=== PATIENT | male | born 1995 | race Two or more races ===

== ENCOUNTER 2016-12-16 13:42 | Emergency (ER) | payer OTHER ==
[~2016-12-16] VITALS: Ht 157.5 cm; Wt 75.7 kg
--- NOTE | 2016-12-16 13:42 | NUR ---
FROM [facility] DIFFUSE ABDOMINAL PAIN SINCE YESTERDAY, +NAUSEA/VOMITING, DENIES DIARRHEA. AWAITING MD ORDER
[2016-12-16] MEDS ORDERED: ONDANSETRON 4 MG TAB.RAPDIS SL ONE (14:30)
[2016-12-16 14:44] LABS: BASOPHILS # (AUTO) 0.1 /CMM (0.0-0.2); BASOPHILS % (AUTO) 0.9 % (0.0-2.0); EOSINOPHILS # (AUTO) 0.1 /CMM (0.0-0.7); EOSINOPHILS % (AUTO) 0.9 % (0.0-6.0); HEMATOCRIT 49 % (39-51); LYMPHOCYTES # (AUTO) 1.5 /CMM (0.8-4.8); LYMPHOCYTES % (AUTO) 20.3 % (20.0-44.0); MEAN CORPUSCULAR HEMOGLOBIN 29 PG (26.0-33.0); MEAN CORPUSCULAR HGB CONC 33 g/dl (31.0-36.0); MEAN CORPUSCULAR VOLUME 90 fL (80-96); MONOCYTES # (AUTO) 0.8 /CMM (0.1-1.30); MONOCYTES % (AUTO) 11.1 % (2.0-12.0); NEUTROPHILS # (AUTO) 4.7 /CMM (1.8-8.9); NEUTROPHILS % (AUTO) 66.8 % (43.0-81.0); PLATELET COUNT (AUTO) 263 /CMM (150-450); RDW COEFFICIENT OF VARIATION 13.7 (11.5-15.0); RED BLOOD CELL COUNT(AUTO) 5.46 MIL/uL (4.5-6.0); WHITE BLOOD COUNT (AUTO) 7.2 K/uL (4.3-11.0)
[2016-12-16 14:55] LABS: CALCIUM, SERUM 9.5 mg/dL (8.5-10.1); CREATININE 1.2 mg/dL (0.6-1.3); POTASSIUM 3.9 mmol/L (3.5-5.1)
[2016-12-16 15:01] LABS: BILIRUBIN,DIRECT 0.1 mg/dL (0.0-0.2); BILIRUBIN,TOTAL 0.4 mg/dL (0.2-1.0); TOTAL PROTEIN, SERUM 8.1 g/dL (6.4-8.2)
[2016-12-16] MEDS ORDERED: ONDANSETRON 4 MG TAB.RAPDIS ONE (15:13)
--- NOTE | 2016-12-16 16:13 | NUR ---
CALLED [facility] FOR TRANSPORT BACK TO [facility], ETA [phone]
--- NOTE | 2016-12-16 16:29 | NUR ---
Patient discharged to home in stable condition. Written and verbal after care instructions given. Patient verbalizes understanding of instruction.
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
--- NOTE | 2016-12-16 18:50 | NUR ---
CALLED BACK [facility] TO TRANSPORT BACK TO [facility] 10-15 MIN
--- NOTE | 2016-12-16 19:08 | NUR ---
RECEIVED REPORT FROM DAIN SAENZ FOR RICHARD.
--- NOTE | 2016-12-16 19:14 | NUR ---
PT REFUSED TO BE TRANSFERED BACK TO [facility]IA AMBULANCE. DR. BOONE MADE AWARE. AT BEDSIDE SPEAKING TO PT.
--- NOTE | 2016-12-16 19:36 | NUR ---
PT AGREED TO BE TRANSFERED BACK TO [facility] VIA EMS. PAC GRANDA AT BEDSIDE. REPORT GIVEN TO [facility]. PROVIDED WITH ALL D/C DOCUMENTATION. PT AWARE OF TRANSFER WITH ALL PERSONAL BELONGINGS. VSS. PT TRANSFERED VIA GURNEY. PER EMS TOOK OVER CARE.
[2016-12-16 19:39] VITALS: BP 146/68
[2016-12-16 19:48] LABS: ACETAMINOPHEN < 10 ug/ml (10-30); ALCOHOL, BLOOD < 3 mg/dL (0-0); SALICYLATE 1.7 mg/dL (2.8-20.0)
== END 2016-12-16 19:39 | disposition home or self-care (01) ==
LOC: ER 13:44
DX: R10.84 Generalized abdominal pain (principal); E11.9 Type 2 diabetes mellitus without complications; R11.2 Nausea with vomiting, unspecified; F20.9 Schizophrenia, unspecified; I10 Essential (primary) hypertension
CPT/HCPCS: 36415; 80048-TC; 80076-TC; 83690-TC; 85025-TC; A4606; G0480; Q0162; Z7610

== ENCOUNTER 2021-04-22 13:08 | Emergency (ER) | payer OTHER ==
[~2021-04-22] VITALS: Ht 157.5 cm; Wt 76.2 kg
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
--- NOTE | 2021-04-22 13:26 | NUR ---
[facility] REGARDING TREATMENT REQUEST, STATES WILL CONFIRM WITH [facility] AND CALL BACK
[2021-04-22] MEDS ORDERED: LEVETIRACETAM (500MG) 1,000 MG in IV NS 0.9% 100 ML IV SCH (13:30)
[2021-04-22] MEDS ORDERED: IV NS 0.9% 1,000 ML IV ONE (13:30)
--- NOTE | 2021-04-22 13:32 | NUR ---
MEDICATED PER ERMD ORDER, PT ANAI WELL. WILL CONT TO MONITOR.
[2021-04-22] MEDS ORDERED: LEVE500T9 PO (15:03)
--- NOTE | 2021-04-22 15:06 | NUR ---
[facility] CALLED [facility] 45 MINS.
--- NOTE | 2021-04-22 16:07 | NUR ---
Patient discharged to home in stable condition. Written and verbal after care instructions given. Patient verbalizes understanding of instruction. IV removed. Catheter intact and site benign. Pressure and 4x4 applied to site. No bleeding noted.
[2021-04-22 16:09] VITALS: BP 121/74
[2021-04-23] MEDS ORDERED: PANTOPRAZOLE 40 MG TABLET.DR PO ONE (07:50)
--- NOTE | 2021-05-06 10:16 | NUR ---
Opal cooper in EDM - 05/06/21 at 1029 by FRANCISCO ADENDUM. CARLSON GIVEN AT 1330 IV AND ENDED 1829.
--- NOTE | 2021-05-06 10:29 | NUR ---
MYRA. KEPPRA 500MG/5ML VIAL 1,00MG IN IV 0.9% NS 100ML GIVEN AT 220ML GIVEN IV. STARTED AT 1330 AND ENDED AT 1400.
== END 2021-04-22 16:08 ==
LOC: ER 13:33
DX: G40.909 Epilepsy, unspecified, not intractable, without status epilepticus (principal); Z91.14 Patient's other noncompliance with medication regimen; I10 Essential (primary) hypertension; J45.909 Unspecified asthma, uncomplicated; E11.9 Type 2 diabetes mellitus without complications
CPT/HCPCS: 96365; 99285; J1953; J7030 ×2

== ENCOUNTER 2021-04-22 19:25 | Inpatient (IN) | payer OTHER ==
[~2021-04-22] VITALS: Ht 157.5 cm; Wt 66.2 kg
[~2021-04-22 19:25] MED LIST: LEVE500T9 PO
--- NOTE | 2021-04-22 19:55 | NUR ---
PATIENT [id number] C/O WITNESSED 1 MIN SEIZURE, -HEADTRUAMA. PATIENT WAS JUST DISCHARGED FROM [facility] ER EARLIER TODAY. PATIENT IS A/O X 4, RR EVEN AND UNLABORED, NO SOB NOTED. PATIENT CONNECTED TO CARIDAC MONITOR AND POX. SEIZURE PRECAUTIONS IN PLACE.
--- NOTE | 2021-04-22 20:56 | NUR ---
PHELBOTOMIST AT BEDSIDE
[2021-04-22 21:12] LABS: BASOPHILS # (AUTO) 0.1 K/uL (0.0-0.2); BASOPHILS % (AUTO) 0.6 % (0.0-2.0); EOSINOPHILS % (AUTO) 0.2 % (0.0-6.0); HEMATOCRIT 45 % (39-51); HEMOGLOBIN 15.1 g/dL (13.5-17.5); LYMPHOCYTES # (AUTO) 2.1 K/uL (0.8-4.8); LYMPHOCYTES % (AUTO) 23.9 % (20.0-44.0); MEAN CORPUSCULAR HGB CONC 33 g/dl (31.0-36.0); MEAN CORPUSCULAR VOLUME 94 fL (80-96); MONOCYTES # (AUTO) 1.2 K/uL (0.1-1.30); MONOCYTES % (AUTO) 13.4 % (2.0-12.0); NEUTROPHILS # (AUTO) 5.3 K/uL (1.8-8.9); NEUTROPHILS % (AUTO) 61.9 % (43.0-81.0); PLATELET COUNT (AUTO) 219 K/uL (150-450); RED BLOOD CELL COUNT(AUTO) 4.78 MIL/uL (4.5-6.0); WHITE BLOOD COUNT (AUTO) 8.6 K/uL (4.3-11.0)
[2021-04-22 21:32] LABS: ALCOHOL, BLOOD < 3 mg/dL (0-0); CALCIUM, SERUM 9.1 mg/dL (8.5-10.1); CARBON DIOXIDE 27 mmol/L (21-32); CHLORIDE 106 mmol/L (98-107); CREATININE 1.1 mg/dL (0.6-1.3); GLUCOSE 95 mg/dL (74-106); POTASSIUM 3.9 mmol/L (3.5-5.1); SODIUM SERUM 142 mmol/L (136-145); UREA NITROGEN, BLOOD 12 mg/dL (7-18)
--- NOTE | 2021-04-22 23:37 | NUR ---
EPIC PANEL PAGED
--- NOTE | 2021-04-23 | NUR ---
URINE COLLECTED AND SENT TO LAB
[2021-04-23] MEDS ORDERED: Z GUARD REMEDY 2 OZ OINT TP PRN (00:30)
[2021-04-23] MEDS ORDERED: ONDANSETRON HCL/PF 4 MG/2 ML VIAL IVP PRN (00:30)
[2021-04-23] MEDS ORDERED: MAGNESIUM HYDROXIDE 30 ML UDC PO PRN (00:30)
--- NOTE | 2021-04-23 00:53 | NUR ---
DENISSE COLLECTED AND SENT TO LAB
[2021-04-23] MEDS ORDERED: LEVETIRACETAM (500MG) 1,000 MG in IV NS 0.9% 100 ML IV SCH (05:00)
[2021-04-23] MEDS ORDERED: LEVETIRACETAM (500MG) 500 MG/5 ML VIAL IV ONE (05:43)
[2021-04-23] MEDS: PANTOPRAZOLE 40 MG TABLET.DR PO SCH (07:45)
[2021-04-23] MEDS: IV NS 0.9% 1,000 ML IV PRN ×2 (08:02→21:12)
--- NOTE | 2021-04-23 08:12 | NUR ---
PT GAVE MOTHERS PHONE NUMBER, TARAN . HUNGARIAN SPEAKING ONLY.
--- NOTE | 2021-04-23 17:42 | NUR ---
bed assigned 325-2 for next shift
--- NOTE | 2021-04-23 19:51 | NUR ---
GAVE REPORT TO DAIN BECKWITH FOR RICHARD
--- NOTE | 2021-04-23 20:29 | NUR ---
pt transported with ACLS protocol.
--- NOTE | 2021-04-23 20:30 | NUR ---
MS COOK RN ADMITTING NOTE PT TRANSPORTED BY [facility] TO UNIT FROM ED AT THIS TIME. RECEIVED REPORT FROM DAIN MOSER @ED, A/OX 4. PT ABLE TO COMMUNICATE NEEDS. NO SOB NOTED, NO C/O PETERS AT THIS TIME, NO S/S OF ANY APPARENT DISTRESS NOTED. RESPIRATIONS EVEN AND UNLABORED, ACTIVE BOWEL SOUNDS AUSCULTATED THROUGHOUT, ABDOMEN IS TENDER AND NON DISTENDED, SKIN IS INTACT, WARM TO TOUCH. CAPILLARY REFILL < 3 SECONDS, PULSES PRESENT BILATERALLY, GOOD CIRCULATION NOTED. IV ACCESS IN LEFT HAND # 20, INTACT, PATENT AND FLUSHING WELL. PT'S BELONGINGS ACCOUNTED FOR, AND KEPT AT PT'S BEDSIDE PER PT REQUEST. ASPIRATION AND SAFETY PRECAUTIONS IN PLACE AND MAINTAINED AT ALL TIMES. BED IN LOWEST, LOCKED POSITION, SIDE RAILS UP X2, TABLE AND CALL LIGHT WITHIN REACH. WILL CONTINUE TO MONITOR.
[2021-04-23] MEDS: LEVETIRACETAM (500MG) 1,000 MG in IV NS 0.9% 100 ML IV SCH (21:12)
[2021-04-23] MEDS: ACETAMINOPHEN 325 MG TABLET PO PRN (22:45)
[2021-04-24 00:01] VITALS: BP 133/85
[2021-04-24] MEDS: HYDROCODONE/APAP 5/325MG TABLET PO PRN ×3 (00:34→15:27)
--- NOTE | 2021-04-24 04:20 | NUR ---
MD ATKINS AND CHARGE NURSE ANALI AWARE, FACE SHEET FAXED TO [facility] CHARGE NURSE, HUYEN. PSCY CONSULT ORDERED AND 1:[address] FRANK. WILL CONTINUE TO MONITOR
--- NOTE | 2021-04-24 04:20 | NUR ---
telecom sales consultant notes Pt is sitting next to nursing station. Pt is SI. Asked Pt about SI. Pt stated " I want to kill my self by putting my hands is on my throat. Pt also stated " I see vampires!" that's why i can't sleep!" informed and notified Director regarding Pt SI. Primary nurse is aware and informed. MD is aware and notified. Will continue to monitor.
[2021-04-24] MEDS: ACETAMINOPHEN 325 MG TABLET PO PRN (04:54)
--- NOTE | 2021-04-24 05:13 | NUR ---
PT STATED THAT HE FEELS LIKE KILLING HIMSELF AND THAT HE WANTS TO SIT WITH SOMEONE. CHARGE NURSE, ANALI MADE AWARE. PT IS SITTING NEXT TO THE NURSES STATION. WILL KEEP MONITORING PATIENT
--- NOTE | 2021-04-24 05:15 | NUR ---
PT BP 129/84. HR 94, O2 SAT 100,
--- NOTE | 2021-04-24 05:28 | NUR ---
CALLED TO NOTIFY DR ATKINS OF THE RECENT HAPPENINGS WITH THE PATIENT. PT IS ANXIOUS AND STATED THAT HE IS HEARING VOICES TELLING HIM TO CHOKE HIMSELF. WAITING TO HEAR FROM HIM.
--- NOTE | 2021-04-24 05:52 | NUR ---
director field services notes Received order from Dr. Heaton for ativan 2 mg IV/STAT. Order carried out.
--- NOTE | 2021-04-24 06:00 | NUR ---
RN NOTE AFTER HOURS PHARMACY CALLED THE 2ND TIME TO VERIFY ATIVAN FREEDOM. STILL NOT VERIFIED.
--- NOTE | 2021-04-24 06:09 | NUR ---
RN NOTE CHARGE NURSE ANALI CALLED PHARMACY AGAIN, PHARMACY [facility] STATES THAT WE STILL HAVE TO WAIT A FEW MORE MINUTES D/T HAVING ONLY ONE PHARMACIST. VERBALIZED THAT WE NEED MED FREEDOM PATIENT IS ACTIVELY HAVING MULTIPLE SEIZURES.
[2021-04-24] MEDS ORDERED: LORAZEPAM INJ 2 MG/ML VIAL IV ONE (06:11)
--- NOTE | 2021-04-24 06:19 | NUR ---
differential repairer notes Pt is having several seizures. Administered ativan 2 mg IV/once/STAT. Seizure precautions is maintained. Primary nurse at the bedside. Will continue to monitor.
[2021-04-24 06:33] LABS: ALBUMIN 3.7 g/dL (3.4-5.0); BILIRUBIN,TOTAL 0.5 mg/dL (0.2-1.0); CALCIUM, SERUM 8.4 mg/dL (8.5-10.1); CREATININE 1.5 mg/dL (0.6-1.3); PHOSPHORUS 2.8 mg/dL (2.5-4.9); POTASSIUM 3.5 mmol/L (3.5-5.1); TOTAL PROTEIN, SERUM 7.7 g/dL (6.4-8.2)
[2021-04-24 06:35] LABS: BASOPHILS # (AUTO) 0.1 K/uL (0.0-0.2); BASOPHILS % (AUTO) 0.5 % (0.0-2.0); EOSINOPHILS % (AUTO) 1.2 % (0.0-6.0); HEMATOCRIT 48 % (39-51); LYMPHOCYTES # (AUTO) 4.1 K/uL (0.8-4.8); LYMPHOCYTES % (AUTO) 41.3 % (20.0-44.0); MEAN CORPUSCULAR HGB CONC 33 g/dl (31.0-36.0); MEAN CORPUSCULAR VOLUME 97 fL (80-96); MONOCYTES # (AUTO) 1.1 K/uL (0.1-1.30); MONOCYTES % (AUTO) 11.6 % (2.0-12.0); NEUTROPHILS # (AUTO) 4.4 K/uL (1.8-8.9); NEUTROPHILS % (AUTO) 45.4 % (43.0-81.0); PLATELET COUNT (AUTO) 242 K/uL (150-450); RED BLOOD CELL COUNT(AUTO) 5.01 MIL/uL (4.5-6.0); WHITE BLOOD COUNT (AUTO) 9.8 K/uL (4.3-11.0)
--- NOTE | 2021-04-24 07:05 | NUR ---
PT HAD MULTIPLE SEIZURES. HE IS STABLE AT THE MOMENT. WILL ENDORSE TO ONCOMING NURSE FOR RICHARD. Addendum: 04/24/21 at 0738 by HÉCTOR NAVAS RN JOYCE GAUTAM CLOSING NOTE PT HAD MULTIPLE SEIZURES. HE IS STABLE AT THE MOMENT. WILL ENDORSE TO ONCOMING NURSE FOR RICHARD.
[2021-04-24 10:00] VITALS: BP 118/69
[2021-04-24] MEDS: PANTOPRAZOLE 40 MG TABLET.DR PO SCH (11:22)
[2021-04-24] MEDS: LEVETIRACETAM (500MG) 1,000 MG in IV NS 0.9% 100 ML IV SCH ×2 (11:25→23:26)
[2021-04-24] MEDS: IV NS 0.9% 1,000 ML IV PRN (11:25)
[2021-04-24 14:00] VITALS: BP 100/78
--- NOTE | 2021-04-24 14:30 | NUR ---
RN NOTE PATIENT HAD SEIZURE WHILE WALKING IN HALLWAY OF UNIT. FELL SLOWLY TO FLOOR. VITALS WNL. PATIENT COMPLAINING OF ARM PAIN XRAY ORDERED
[2021-04-24] MEDS: LORAZEPAM INJ 2 MG/ML VIAL IV PRN ×2 (15:26→19:42)
[2021-04-24] MEDS: MAG HYDROX/AL HYDROX/SIMETH 30 ML UDC PO PRN (15:26)
[2021-04-24 17:00] VITALS: BP 148/86
--- NOTE | 2021-04-24 19:00 | NUR ---
MS BENEFITS SPECIALIST ADMITTING RECEIVED PT IN THE NURSES STATION, A/OX 4. PT ABLE TO COMMUNICATE NEEDS. PT ON EXTERNAL ORTHOTICS TECHNICIAN SR @ 62. NO SOB NOTED, NO C/O PETERS AT THIS TIME, NO S/S OF ANY APPARENT DISTRESS NOTED. RESPIRATIONS EVEN AND UNLABORED, IV ACCESS IN LEFT HAND # 20, INTACT, PATENT AND FLUSHING WELL. ASPIRATION AND SAFETY PRECAUTIONS IN PLACE AND MAINTAINED AT ALL TIMES. BED IN LOWEST, LOCKED POSITION, SIDE RAILS UP X2, TABLE AND CALL LIGHT WITHIN REACH. WILL CONTINUE TO MONITOR. Addendum: 04/24/21 at 2231 by HÉCTOR NAVAS RN BENEFITS SPECIALIST OPENING NOTE RECEIVED PT IN THE NURSES STATION, A/OX 4. PT ABLE TO COMMUNICATE NEEDS. PT ON EXTERNAL ORTHOTICS TECHNICIAN SR @ 62. NO SOB NOTED, NO C/O PETERS AT THIS TIME, NO S/S OF ANY APPARENT DISTRESS NOTED. RESPIRATIONS EVEN AND UNLABORED, IV ACCESS IN LEFT HAND # 20, INTACT, PATENT AND FLUSHING WELL. ASPIRATION AND SAFETY PRECAUTIONS IN PLACE AND MAINTAINED AT ALL TIMES. BED IN LOWEST, LOCKED POSITION, SIDE RAILS UP X2, TABLE AND CALL LIGHT WITHIN REACH. WILL CONTINUE TO MONITOR.
--- NOTE | 2021-04-24 19:30 | NUR ---
PT STARTED HAVING SEIZURE, IT LASTED FOR 1 MIN. ATIVAN 1MG/0.5ML IV Q6HR PRN ADMINISTERED AT THIS TIME PER ORDER. WILL CONTINUE TO MONITOR.
--- NOTE | 2021-04-24 19:34 | NUR ---
PT HAD ANOTHER SEIZURE, LASTED FOR [address] ATKINS MADE AWARE. WILL CONTINUE TO MONITOR.
--- NOTE | 2021-04-24 19:55 | NUR ---
RN NOTE WHILE GIVING REPORT TO WATER SUPPLY TECHNICIAN NURSE PATIENT HAD TWO MORE SEIZURES. CONTACTED FEDERICO. SHE IS NOT SECTION CHIEF. WILL CONTACT SECTION CHIEF DOCTOR.
--- NOTE | 2021-04-24 21:30 | NUR ---
PT REFUSED MEDS AT THIS TIME. NO IV ACCESS, AGITATED AND REFUSED IV ACCESS, OFFERED MULTIPLE TIMES AND HE STILL REFUSED. WILL TRY AGAIN LATER. EXPLAINED THE RISKS AND BENEFITS. PT STILL REFUSED.WILL CONTINUE TO MONITOR.
[2021-04-24] MEDS: OLANZAPINE 10 MG TABLET PO SCH (23:26)
--- NOTE | 2021-04-25 06:33 | NUR ---
325: MELTER ASSISTANT CLOSING NOTE PT IS SLEEPING, EASILY AROUSED IN BED AT THIS TIME. A/OX 3-4. PT IS AMBULATORY, STABLE ON ROOM AIR. NO SOB NOTED OR RESPIRATORY DISTRESS. NO SEIZURES OR ANXIETY NOTED, PT REMAINED STABLE THROUGHOUT SHIFT WITH SITTER AT THE BEDSIDE. PT IS ON EXTERNAL COMPENSATION AND BENEFITS ANALYST READING SB 52. PT DENIES PAIN OR DISCOMFORT AT THIS TIME. IV ACCESS IS INTACT, PATENT AND FLUSHING WELL, NS INFUSING @ 75 ML/HR. ALL NEEDS MET, ALL MEDICATIONS ADMINISTERED PER ORDER, SAFETY, SEIZURE, AND ASPIRATION PRECAUTIONS MAINTAINED AT ALL TIMES. BED IN LOWEST, LOCKED POSITION WITH BED ALARM ON, SIDE RAILS PADDED AND UP X2. HOB ELEVATED. CALL LIGHT AND TABLE WITHIN REACH. WILL ENDORSE TO ONCOMING NURSE FOR RICHARD. Addendum: 04/25/21 at 0635 by HÉCTOR NAVAS RN MELTER ASSISTANT CLOSING NOTE PT IS SLEEPING, EASILY AROUSED IN BED AT THIS TIME. A/OX 3-4. PT IS AMBULATORY, STABLE ON ROOM AIR. NO SOB NOTED OR RESPIRATORY DISTRESS. NO SEIZURES OR ANXIETY NOTED, PT REMAINED STABLE THROUGHOUT SHIFT WITH SITTER AT THE BEDSIDE. PT IS ON EXTERNAL COMPENSATION AND BENEFITS ANALYST READING SB 52. PT DENIES PAIN OR DISCOMFORT AT THIS TIME. IV ACCESS IS INTACT, PATENT AND FLUSHING WELL, NS INFUSING @ 75 ML/HR. ALL NEEDS MET, ALL MEDICATIONS ADMINISTERED PER ORDER, SAFETY, SEIZURE, AND ASPIRATION PRECAUTIONS MAINTAINED AT ALL TIMES. BED IN LOWEST, LOCKED POSITION WITH BED ALARM ON, SIDE RAILS PADDED AND UP X2. HOB ELEVATED. CALL LIGHT AND TABLE WITHIN REACH. WILL ENDORSE TO ONCOMING NURSE FOR RICHARD.
[2021-04-25 06:55] LABS: BASOPHILS % (AUTO) 0.6 % (0.0-2.0); EOSINOPHILS % (AUTO) 1.4 % (0.0-6.0); HEMATOCRIT 46 % (39-51); HEMOGLOBIN 15.7 g/dL (13.5-17.5); LYMPHOCYTES # (AUTO) 2.8 K/uL (0.8-4.8); LYMPHOCYTES % (AUTO) 36.3 % (20.0-44.0); MEAN CORPUSCULAR HGB CONC 34 g/dl (31.0-36.0); MEAN CORPUSCULAR VOLUME 95 fL (80-96); MONOCYTES % (AUTO) 12.5 % (2.0-12.0); NEUTROPHILS # (AUTO) 3.8 K/uL (1.8-8.9); NEUTROPHILS % (AUTO) 49.2 % (43.0-81.0); PLATELET COUNT (AUTO) 211 K/uL (150-450); RED BLOOD CELL COUNT(AUTO) 4.84 MIL/uL (4.5-6.0); WHITE BLOOD COUNT (AUTO) 7.8 K/uL (4.3-11.0)
--- NOTE | 2021-04-25 07:22 | NUR ---
BAGGAGE INSPECTOR OPENING NOTES RECEIVED PT AWAKE IN BED IN NO ACUTE SIGNS OF DISTRESS. SITTER AT BED SIDE. A/O X3-4. ABLE TO MAKE NEEDS KNOWN, DENIES PAIN OR ANY DISCOMFORTS AT THIS TIME. ON ROOM AIR, RESPIRATIONS EVEN AND UNLABORED. ON EXTERNAL NOVELTY TWISTER OPERATOR WITH CURRENT READING OF SB, HR 56, NO C/O CARDIAC DISTRESS VOICED AT THIS TIME. IV ACCESS ON LEFT HAND G# 20 INTACT WITH IVF OF NS @ 75ML/HR INFUSING WELL, NO S/SX OF INFILTRATION AT SITE NOTED. SEIZURES AND SAFETY MEASURES IN PLACE: BED IN LOW AND LOCKED POSITION, CALL LIGHT AND BEDSIDE TABLE WITHIN REACH. SIDE RAILS UP X2 AND PADDED. WILL CONTINUE TO MONITOR PT ACCORDINGLY.
[2021-04-25 07:42] LABS: ALBUMIN 3.5 g/dL (3.4-5.0); BILIRUBIN,TOTAL 0.5 mg/dL (0.2-1.0); CALCIUM, SERUM 9.1 mg/dL (8.5-10.1); CREATININE 1.2 mg/dL (0.6-1.3); MAGNESIUM 2.3 mg/dL (1.8-2.4); PHOSPHORUS 3.6 mg/dL (2.5-4.9); POTASSIUM 3.6 mmol/L (3.5-5.1); TOTAL PROTEIN, SERUM 7.1 g/dL (6.4-8.2)
[2021-04-25 08:00] VITALS: BP 126/75
[2021-04-25] MEDS: PANTOPRAZOLE 40 MG TABLET.DR PO SCH (08:14)
[2021-04-25] MEDS: LEVETIRACETAM (500MG) 1,000 MG in IV NS 0.9% 100 ML IV SCH (09:02)
[2021-04-25 12:00] VITALS: BP 126/68
--- NOTE | 2021-04-25 13:03 | NUR ---
RN NOTES PT AT TIMES VERBALIZED THAT HE WANTS TO COMMITS SUICIDE OR HURT HIMSELF. MAINTAINS PT WITH 1:1 SITTER FOR CLOSE MONITORING. AIDE CABALLERO ON UNIT AND AWARE. WILL CONTINUE TO CLOSELY MONITOR PT BEHAVIOR AND FOR SAFETY.
[2021-04-25] MEDS: HYDROCODONE/APAP 5/325MG TABLET PO PRN (14:15)
--- NOTE | 2021-04-25 14:18 | NUR ---
RN NOTE PT COMPLAINING OF 7/10 SHARP HEAD PAIN. GIVEN NORCO PRN ORDERED. VITALS WITHIN NORMAL LIMITS. WILL CONTINUE TO MONITOR.
[2021-04-25] MEDS: IV NS 0.9% 1,000 ML IV PRN (14:55)
[2021-04-25 16:00] VITALS: BP 123/70
--- NOTE | 2021-04-25 18:50 | NUR ---
FARMHAND CLOSING NOTES PT AWAKE AND RESTING IN BED AT THIS TIME WITH 1:1 SITTER AT BEDSIDE FOR CLOSE MONITORING. A/O X3-4. ABLE TO MAKE NEEDS KNOWN. NO SEIZURE ACTIVITY NOTED DURING SHIFT. ON ROOM AIR, RESPIRATIONS EVEN AND UNLABORED, NO ACUTE RESPIRATORY DISTRESS NOTED DURING TOUR. ON EXTERNAL TYPEWRITER ASSEMBLER WITH CURRENT READING OF NSR, HR 80'S, NO C/O CARDIAC DISTRESS VOICED. IV ACCESS ON LEFT HAND G# 20 INTACT WITH IVF OF NS @ 75ML/HR INFUSING WELL, NO S/SX OF INFILTRATION AT SITE NOTED. ALL NEEDS AND CARE ATTENDED WELL. SEIZURES AND SAFETY MEASURES KEPT IN PLACE: BED IN LOWEST LOCKED POSITION, SIDE-RAILS UP X2 AND PADDED. CALL LIGHT AND BEDSIDE TABLE W/I EASY REACH OF PT. WILL ENDORSE TO HAMMER RUNNER NURSE FOR RICHARD.
--- NOTE | 2021-04-25 19:33 | NUR ---
HAND TOOL LAPPER OPENING NOTES RECEIVED PT AWAKE AND RESTING IN BED AT THIS TIME WITH 1:1 SITTER AT BEDSIDE FOR CLOSE MONITORING. A/O X3-4. ABLE TO MAKE NEEDS KNOWN. NO SEIZURE ACTIVITY NOTED AT THIS TIME. ON ROOM AIR, RESPIRATIONS EVEN AND UNLABORED. ON EXTERNAL OFFAL ICER POULTRY WITH CURRENT READING OF NSR, HR 80'S, NO C/O CARDIAC DISTRESS VOICED. IV ACCESS ON LEFT HAND G# 20 INTACT WITH IVF OF NS @ 75ML/HR INFUSING WELL, NO S/SX OF INFILTRATION AT SITE NOTED. SEIZURES AND SAFETY MEASURES KEPT IN PLACE: BED IN LOWEST LOCKED POSITION, SIDE-RAILS UP X2 AND PADDED. CALL LIGHT AND BEDSIDE TABLE W/I EASY REACH OF PT. WILL CONTINUE TO MONITOR PATIENT ACCDGLY
[2021-04-25] MEDS: OLANZAPINE 10 MG TABLET PO SCH (21:04)
[2021-04-25] MEDS: LEVETIRACETAM (500MG) 1,500 MG in IV NS 0.9% 100 ML IV SCH (21:05)
[2021-04-25] MEDS: ACETAMINOPHEN 325 MG TABLET PO PRN (21:26)
--- NOTE | 2021-04-25 22:20 | NUR ---
MEAT STUFFER notes Pt is having seizure (3 times) for less that 1 min Administered ativan 1 mg IV PRN at 2225. Patient was with sitter at the time of the seizure, patient is standing in front of the bedside table, sitter able to grabbed him, assisted him to lay on the floor. Charge nurse at the bedside.Seizure maintained. Dr. Heaton notified of patient condition. Will continue to monitor.
[2021-04-25] MEDS: LORAZEPAM INJ 2 MG/ML VIAL IV PRN (22:25)
[2021-04-26] MEDS: IV NS 0.9% 1,000 ML IV PRN (06:35)
--- NOTE | 2021-04-26 06:46 | NUR ---
CRYSTAL INSPECTOR CLOSING NOTES PT AWAKE AND RESTING IN BED AT THIS TIME WITH 1:1 SITTER AT BEDSIDE FOR CLOSE MONITORING. A/O X3-4. ABLE TO MAKE NEEDS KNOWN. NO SEIZURE ACTIVITY NOTED AT THIS TIME. ON ROOM AIR, RESPIRATIONS EVEN AND UNLABORED. ON EXTERNAL UROLOGIST PHYSICIAN WITH CURRENT READING OF NSR, HR 80'S, NO C/O CARDIAC DISTRESS VOICED. IV ACCESS ON LEFT HAND G# 20 INTACT WITH IVF OF NS @ 75ML/HR INFUSING WELL, NO S/SX OF INFILTRATION AT SITE NOTED. SEIZURES AND SAFETY MEASURES KEPT IN PLACE: BED IN LOWEST LOCKED POSITION, SIDE-RAILS UP X2 AND PADDED. CALL LIGHT AND BEDSIDE TABLE W/I EASY REACH OF PT. WILL ENDORSED PT. ACCDGLY TO DAY TIME NURSE FOR RICHARD
[2021-04-26] MEDS: LORAZEPAM INJ 2 MG/ML VIAL IV PRN ×2 (07:23→13:59)
--- NOTE | 2021-04-26 07:30 | NUR ---
BRAKE REPAIR SUPERVISOR OPENING NOTE: UPON RECEIVING REPORT AT BEDSIDE, Pt STATED, "I FEEL ANOTHER ONE COMING ON." ~ 30 SECONDS LATER, Pt EXPERIENCED A SEIZURE. DURATION, ~ 30 SECONDS. ADMINISTERED ATIVAN 1MG PER MD ORDER. POSTICTAL ~ 5 MINUTES. Pt C/O GUIDO AND TYLENOL ADMINISTERED PER MD ORDER WITH EFFECTIVE RESULTS EVIDENCED BY DECREASED PAIN SCORE.
[2021-04-26] MEDS: ACETAMINOPHEN 325 MG TABLET PO PRN (07:39)
[2021-04-26 08:00] VITALS: BP 108/68
[2021-04-26] MEDS: PANTOPRAZOLE 40 MG TABLET.DR PO SCH (08:25)
[2021-04-26] MEDS: LEVETIRACETAM (500MG) 1,500 MG in IV NS 0.9% 100 ML IV SCH ×2 (08:50→21:00)
--- NOTE | 2021-04-26 08:58 | NUR ---
CONVENTION WORKER NOTES Pt. A&O TO BASELINE S/P SEIZURE. Pt PLEASANT, COMMUNICATIVE; DRINKING/EATING WITHOUT DIFFICULTY. NO RESIDUAL AFFECTS NOTED. SEIZURE PRECAUTIONS IN PLACE. Pt IN BED WATCHING TV AT THIS TIME. NAD. VSS. SITTER AT BEDSIDE FOR MONITORING.
--- NOTE | 2021-04-26 11:57 | NUR ---
SS Consult: SS consult for suicidal ideation. Pt. Is a 26-year-old male. Pt. demonstrates adequate insight to the reason for hospitalization. Per pt., he was brought to hospital by ambulance due to seizures. Pt. was oriented x3, alert, and cooperative. During interview, pt. was capable of following directions, made appropriate eye-contact, and appeared well-groomed. Pt.s speech was at a normal rate. Pt.s mood was euthymic when speaking with pt. NEHEMIAH explored pt.s Hx of mental health and substance abuse. Pt. reported no Hx of mental health, substance abuse, or homicidal. Pt. denies auditory hallucinations, visual hallucinations, paranoia, or delusions. Pt. reported having suicidal ideation. Per pt., he has been suicidal since 10-years-old. Pt. reported that he has been trying to harm himself with a knife. Per pt., he has tried harming self recently by cutting himself. Pt. mentioned he has been to multiple psychiatric units and it did not help. Pt. expressed wanting to go to another psychiatric hospital. NEHEMIAH explored pt.s living situation. Per pt., he lives with his family [[address] [facility] [address]]. Pt. gave different address than Face sheet [[address] [facility] [address]]. Per pt., he reports having adequate support at home. NEHEMIAH fax referrals to [facility] [fax number: [phone], telephone: [phone]]. NEHEMIAH spoke with Tc and he mentioned that he will refer pt. to [facility] at [place]. Plan: NEHEMIAH fax pt.s clinical reports to [facility] for voluntary pt.
[2021-04-26 12:00] VITALS: BP 105/62
--- NOTE | 2021-04-26 12:20 | NUR ---
CLEAN UP WORKER NOTES Pt STABLE. COMMUNICATIVE, SEIZURE PRECAUTIONS IN PLACE. SITTER WITH Pt. ASSISTING VIA W/C AROUND UNIT. NO SI AT THIS TIME.
--- NOTE | 2021-04-26 12:42 | NUR ---
MEDICAL ADVISOR NOTES: Pt PULLED OUT L HAND IV STATING "IT WAS ITCHY AND BOTHERING ME." NEW IV PLACED TO DISTAL R INTERIOR FA, 22 GAUGE ON FIRST ATTEMPT. BLOOD RETURN ACHIEVED AND FLUSHED WITH 3MLS NS. NO INFILTRATION.
--- NOTE | 2021-04-26 13:30 | NUR ---
REFRIGERATION MECHANIC NOTES Pt IN PSYCHIATRIC DISTRESS. CRYING LOUDLY AND UNCONTROLLABLY. NURSES AND ANCILLARY STAFF AT BEDSIDE FOR SUPPORT, NON-PHARMACOLOGICAL INTERVENTIONS AND THERAPEUTIC COMMUNICATION INEFFECTIVE. Pt YELLING, "I DON'T WANT TO BE HERE! I WANT TO !" AWARE. PRN MEDICATION ADMINISTERED WITH EFFECTIVE RESULTS. AT 1424 Pt IN BED AWAKE EATING/DRINKING AND WATCHING TV.
--- NOTE | 2021-04-26 14:49 | NUR ---
SW is still waiting for medical clearance note and keppra [place] from doctor [place] [facility]
--- NOTE | 2021-04-26 15:54 | NUR ---
NEHEMIAH fax over clinical reports to [facility] [fax number: [phone]]. Will keep charge nurse, Jihan updated.
--- NOTE | 2021-04-26 15:57 | NUR ---
KNIFE SETTER NOTES TEXT SENT TO DR. CABELLO RE: D/C TO [facility] POST KEPPRA LEVEL DRAW. DR. CABELLO REPLIED OK D/C STATING Pt IS MEDICALLY CLEARED; HOWEVER, [facility] WILL NOT ACCEPT Pt UNTIL DR DOCUMENTS SPECIFICALLY, "Pt. MEDICALLY CLEARED FOR DISCHARGE." IN DISCHARGE SUMMARY. DR. CABELLO NOTIFIED.
[2021-04-26 16:00] VITALS: BP 104/78
[2021-04-26] MEDS ORDERED: LEVE500T9 PO (16:12)
[2021-04-26] MEDS ORDERED: Olanzapine PO (16:12)
--- NOTE | 2021-04-26 16:32 | NUR ---
ASSOCIATE VICE PRESIDENT NOTES: PER [facility], TECHNICIANS WILL NOT RUN THE BLOOD SAMPLE FOR LEVETIRACETAM STAT DESPITE MD ORDER. Addendum: 04/26/21 at 1844 by KALEE MC RN ASSOCIATE VICE PRESIDENT CLOSING NOTES: Pt AT NURSE'S STATION IN W/C THROUGHOUT MAJORITY OF SHIFT. SITTER MONITORING AND ESCORTING Pt VIA W/C (SEIZURE PRECAUTION) AROUND UNIT FOR DISTRACTION. Pt IS COMMUNICATIVE AND THERAPEUTIC COMMUNICATION/DISTRACTION IS MODERATELY EFFECTIVE. D/C AND TRANSFER TO [facility] FOR TOMORROW PENDING KEPPRA LEVEL RESULTS. NURSING TO F/U WITH SW. AT THIS TIME Pt IS CALM AND COOPERATIVE. NAD. VSS. TELE READINGS MOSTLY ST.
--- NOTE | 2021-04-26 19:25 | NUR ---
LEAD AUDITOR NOTE PATIENT HAVING PSEUDO SEIZURE AT THIS TIME LASTING FOR MORE THAN 2 MINUTES. SAFETY MEASURES WAS IN PLACE, JOSE JORDAN WAS IN THE ROOM WITH PATIENT THE WHOLE TIME. PATIENT STOOD UP AFTER QUITE SOME TIME. IN STABLE CONDITION. WILL CONTINUE TO MONITOR.
--- NOTE | 2021-04-26 19:30 | NUR ---
SENIOUR INSIGHT MANAGER OPENING PATIENT ROAMING IN HALLWAY, AND IN ROOM. NO S/S OF DISTRESS. NO C/O PAIN. PATIENT ACCOMPANIED BY TIMBER CRUISER. TELE MONITOR READING ST 109-110. WILL CONTINUE TO MONITOR FOR AURA AND SAFETY/ SEIZURE PRECAUTION IN PLACE. WILL FOLLOW THROUGH PLAN OF CARE.
[2021-04-26 20:00] VITALS: BP 125/75
--- NOTE | 2021-04-26 20:15 | NUR ---
PROGRAM ARRANGER NOTE PATIENT REFUSING TELE MONITOR BOX AT THIS TIME AND GIVING NURSES/STAFF ATTITUDE AT THE MOMENT. TELE MONITOR ON STANDBY FOR NOW.
--- NOTE | 2021-04-26 21:09 | NUR ---
WEB MERCHANT NOTE PATIENT REMOVED IV AGAIN. REFUSING TO TALK. CANNOT INSERT A NEW ONE RIGHT NOW HENCE KEPPRA CANNOT BE GIVEN AT THIS TIME. CHARGE NURSE AWARE. PER KEM KING, WE COULD TRY IF HE TAKES HIS PO ZYPREXA WE COULD ASK DOCTOR TO CHANGE IV KEPPRA TO PO. WILL TRY AGAIN IN AN HOUR FOR HIS 2200 DOSE OF ZYPREXA.
[2021-04-26] MEDS: OLANZAPINE 10 MG TABLET PO SCH (22:00)
--- NOTE | 2021-04-26 22:24 | NUR ---
MERCHANDISE FOR RESALE PURCHASING AGENT NOTE TALKED TO DR. THEE AUGUSITN ABOUT PATIENT REFUSING HIS MEDICATIONS INCLUDING KEPPRA. PER DOCTOR THEE JUST DOCUMENT THAT PATIENT IS REFUSING.
[2021-04-26] MEDS: HYDROCODONE/APAP 5/325MG TABLET PO PRN (22:28)
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
[2021-04-27] VITALS: BP 117/62
[2021-04-27] MEDS: LEVETIRACETAM (500MG) 1,500 MG in IV NS 0.9% 100 ML IV SCH ×2 (01:18→09:01)
[2021-04-27] MEDS: OLANZAPINE 10 MG TABLET PO SCH ×2 (01:22→21:10)
--- NOTE | 2021-04-27 01:22 | NUR ---
VENEER STACKER NOTE PATIENT FINALLY AGREED TO PUT IV ON HIM. L. HAND 22 GAUGE INSERTED AT THIS TIME BY DAIN BURKETT. KEPPRA AND ZYPREXA GIVEN LATE FOR PATIENT'S UNCOOPERATIVE BEHAVIOR EARLIER. WILL CONTINUE TO MONITOR.
--- NOTE | 2021-04-27 07:37 | NUR ---
DRAPERY SEWER HAND NOTE REPORT GIVEN TO PARTH FOR CONTINUITY OF CARE.
--- NOTE | 2021-04-27 07:50 | NUR ---
METER READER CHIEF OPENING PATIENT ROAMING AROUND THE HALLWAY AND IN HIS ROOM WITH SITTER. NO S/S OF DISTRESS. NO C/O PAIN AT THIS TIME. PATIENT ACCOMPANIED BY PIPE THREADER. TELE MONITOR READING ST 109-110. WILL CONTINUE TO MONITOR FOR SAFETY/ SEIZURE PRECAUTIONS IN PLACE. WILL FOLLOW THROUGH PLAN OF CARE.
[2021-04-27] MEDS: PANTOPRAZOLE 40 MG TABLET.DR PO SCH (08:18)
--- NOTE | 2021-04-27 11:54 | NUR ---
LACE INSPECTOR NOTES PT IN BED, RESTING, PT PULLED OUT HIS IV AND REFUSES REINSERTION, DR. CABELLO INFORMED AND ORDERED TO CHANGE PRN ATIVAN FROM IV TO IM, NOTED AND CARRIED OUT.
--- NOTE | 2021-04-27 13:50 | NUR ---
Lab results for pt.s Keppra level is still pending. The Psych Facility [[facility] in [place], fax: [phone]] are requiring it before admitting pt. NEHEMIAH has spoken and updated Charge nurse Kendall. NEHEMIAH also fax clinical reports to [facility] [fax number: [phone], tele: [phone]]. NEHEMIAH spoke with Tc from [facility], and he mentioned that all Psych facilities will require the Keppra level.
[2021-04-27] MEDS: ACETAMINOPHEN 325 MG TABLET PO PRN ×2 (14:14→23:59)
--- NOTE | 2021-04-27 18:38 | NUR ---
EFFICIENCY EXPERT NOTES PATIENT A/O X 3-4 STABLE AND NOT IN DISTRESS.PATIENT ROAMING AROUND THE HALLWAY WITH SITTER.SAFETY MEASURES AND SEIZURE PRECAUTIONS IN PLACED. REFUSED IVF AND IV MEDICATIONS,MD CHANGED ALL MEDICATIONS TO ORAL. NO EPISODE OF SEIZURE THIS SHIFT.WILL ENDORSE CARE TO THE NEXT SHIFT
--- NOTE | 2021-04-27 19:45 | NUR ---
DIRECTOR OF PRODUCT MARKETING NOTES RECEIVED ON BED SLEEPING,AROUSABLE TO VERBAL STIMULI,BREATHING REGULAR,NOT IN ANY FORM OF DISTRESS.ON SEIZURE PRECAUTION,SIDE RAILS PADDED.NO IV ACCESS,NO TELE BOX,PATIENT REFUSED.CALL LIGHT IN REACH,NEEDS ANTICIPATED.
[2021-04-27 20:00] VITALS: BP 110/59
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
--- NOTE | 2021-04-27 20:53 | NUR ---
DRY STARCH SUPERVISOR NOTES ON THE WAY TO HIS ROOM VIA WHEELCHAIR,HE GOT EPISODE OF SEIZURE.PER REPORT,HE USED TO FAKE HIS SEIZURE BECAUSE HE VERBALIZED HE GOT SEIZURE AFTER.HE EVEN TRIED TO CHOKE HIMSELF WITH HIS HAND.SEIZURE LAST FOR 5 MINUTES ON THE FLOOR,HEAD PROTECTED WITH PILLOW. NO INJURY,ABLE TO GET UP AND SIT ON CHAIR.
[2021-04-27] MEDS: LEVETIRACETAM (250 MG) 250 MG TABLET PO SCH (21:10)
--- NOTE | 2021-04-27 21:15 | NUR ---
MARRIAGE PERFORMER NOTES ABLE TO TAKE HIS PO MEDS OF KEPPRA 1500MG AND ZYPREXA 10MG FOR MOOD.
--- NOTE | 2021-04-27 21:45 | NUR ---
FISH EGG PACKER NOTES MOVING FORWARD,WHILE SITTING ON CHAIR IN FRONT OF NURSE STATION,VERBALIZING HE WANTS TO GO TO PSYCHIATRIC UNIT,THAT THE FAMILY DONT WANT TO VISIT HIM.
[2021-04-27 22:15] VITALS: BP 110/59
--- NOTE | 2021-04-27 23:59 | NUR ---
COMMANDING OFFICER HOMICIDE SQUAD NOTES C/O HEADACHE,TYLENOL 650MG PO GIVEN PER PATIENT REQUEST.
[2021-04-28] MEDS: MAG HYDROX/AL HYDROX/SIMETH 30 ML UDC PO PRN (03:41)
--- NOTE | 2021-04-28 03:41 | NUR ---
EARLY MORNING NOTES HAVING STOMACH UPSET,MAALOX 30ML PO GIVEN PER PATIENT REQUEST.
[2021-04-28] MEDS: ACETAMINOPHEN 325 MG TABLET PO PRN ×3 (05:57→18:19)
--- NOTE | 2021-04-28 05:57 | NUR ---
DITCH WORKER NOTES C/O HEADACHE,TYLENOL 650MG PO GIVEN REQUESTED.
--- NOTE | 2021-04-28 06:21 | NUR ---
CARTON INSPECTOR NOTES TELE BOX STILL ON STANDBY,NO SALINE LOCK,PATIENT REFUSED,UP THE WHOLE,REFUSED TO GO BACK TO BED TO SLEEP,WALKING AROUND,TALKING TO NURSES,NO EPISODE SINCE AFTER TAKING KEPPRA.POSSIBLE D/C TODAY, AWAITING KEPPRA LEVEL.WILL ENDORSE TO DAY NURSE FOR RICHARD.
--- NOTE | 2021-04-28 07:12 | NUR ---
RESPIRATORY THERAPIST OPENING NOTES RECEIVED PATIENT ROAMING AROUND THE HALLWAY AND 1:1 SITTER BY HIS SIDE CLOSELY MONITOR ING HIM. PT IS A/O X3-4. ABLE TO MAKE NEEDS KNOWN, , DENIES PAIN OR ANY DISCOMFORTS AT THIS TIME. ON ROOM AIR, TOLERATING WELL WITH NO ACUTE RESPIRATORY DISTRESS NOTED. PT HAS NO IV ACCES, IS AWARE. PT ALSO REFUSED TELE-MONITOR DESPITE EXPLAINING IMPORTANCE/BENEFITS OF IT. SAFETY AND SEIZURE PRECAUTIONS IN PLACE. WILL CONTINUE TO MONITOR PT CLOSELY.
[2021-04-28] MEDS: PANTOPRAZOLE 40 MG TABLET.DR PO SCH (07:37)
[2021-04-28 08:00] VITALS: BP 127/71
[2021-04-28] MEDS: LEVETIRACETAM (250 MG) 250 MG TABLET PO SCH ×2 (08:11→20:21)
--- NOTE | 2021-04-28 12:19 | NUR ---
RN NOTES PT C/O MILD HEADACHE AND ASKED FOR TYLENOL. PRN TYLENOL 650 MG PO GIVEN AT 1217. WILL CONTINUE TO MONITOR PT CLOSELY.
[2021-04-28 16:28] VITALS: BP 104/61
--- NOTE | 2021-04-28 18:21 | NUR ---
RN NOTES PT C/O MILD HEADACHE AND ASKED FOR TYLENOL. PRN TYLENOL 650 MG PO GIVEN AT 1819. WILL CONTINUE TO MONITOR PT CLOSELY.
--- NOTE | 2021-04-28 18:41 | NUR ---
ROLLER OPERATOR CLOSING NOTES PATIENT WALKING AROUND THE HALLWAYS WITH 1:1 SITTER BY HIS SIDE CLOSELY MONITOR ING HIM. PT IS A/O X3-4. ABLE TO MAKE NEEDS KNOWN. ON ROOM AIR, TOLERATING WELL WITH NO ACUTE RESPIRATORY DISTRESS NOTED DURING THE DAY. PT HAS NO IV ACCESS, MD IS AWARE. PT ALSO REFUSED TELE-MONITOR DESPITE EXPLAINING IMPORTANCE/BENEFITS OF IT. TELE BOX ON STAND BY. ALL NEEDS AND CARE ATTENDED WELL. SAFETY AND SEIZURE PRECAUTIONS MAINTAINED. WILL ENDORSE RICHARD TO PULLING UNIT FLOORHAND NURSE.
--- NOTE | 2021-04-28 19:45 | NUR ---
LEASE PICKER NOTES RECEIVED WALKING AROUND,MONITOR FOR SEIZURE,NO IV ACCESS,NO TELE BOX,PATIENT REFUSED.WILL MONITOR FOR SEIZURE ACTIVITY.
[2021-04-28 20:00] VITALS: BP 128/73
[2021-04-28] MEDS: OLANZAPINE 10 MG TABLET PO SCH (21:07)
--- NOTE | 2021-04-28 21:30 | NUR ---
CEMENT GUN OPERATOR NOTES LAY ON THE BED THIS TIME,SAYS HE'S GOING TO SLEEP.
[2021-04-29] MEDS: ACETAMINOPHEN 325 MG TABLET PO PRN ×3 (01:03→21:50)
[2021-04-29] MEDS: MAG HYDROX/AL HYDROX/SIMETH 30 ML UDC PO PRN (06:26)
--- NOTE | 2021-04-29 06:30 | NUR ---
MEDICAL DRIVER NOTES NO TELE BOX,NO SALINE LOCK,PATIENT REFUSED.AWAITING KEPPRA LEVEL,POSSIBLE DC BEHAVIORAL UNIT ONCE RESULT IN.
--- NOTE | 2021-04-29 06:47 | NUR ---
NUCLEAR INSTRUCTOR NOTES NO SEIZURE ACTIVITY THRU OUT THE NIGHT,SLEPT 3 HOURS LAST NIGHT.
--- NOTE | 2021-04-29 07:47 | NUR ---
RN OPENING NOTE- PT IN BED ASLEEP EASILY AWAKENED. . 1:1 SITTER BY HIS SIDE. PT IS A/O X3-4. ABLE TO MAKE NEEDS KNOWN, , DENIES PAIN AT THIS TIME. ON ROOM AIR, TOLERATING WELL WITH NO ACUTE RESPIRATORY DISTRESS NOTED. PT HAS NO IV ACCES, MD IS AWARE. PT ALSO REFUSED TELE-MONITOR DESPITE EXPLAINING IMPORTANCE/BENEFITS OF IT. SAFETY AND SEIZURE PRECAUTIONS IN PLACE. WILL CONTINUE TO MONITOR PT CLOSELY.
[2021-04-29] MEDS: LEVETIRACETAM (250 MG) 250 MG TABLET PO SCH ×2 (08:02→21:44)
[2021-04-29] MEDS: PANTOPRAZOLE 40 MG TABLET.DR PO SCH (08:02)
--- NOTE | 2021-04-29 11:01 | NUR ---
RN NOTE- C/O HEADACHE. TYLENOL 650 MG ADMINISTERED
--- NOTE | 2021-04-29 19:40 | NUR ---
MS/RN OPENING NOTE RECEIVED PATIENT WALKING AROUND UNIT. ALERT AND ORIENTED X 4. ABLE TO MAKE NEEDS KNOWN. DENIES PAIN AT THIS TIME. CONTINUES ON ROOM AIR WITH NO S/SX OF RESPIRATORY DISTRESS NOTED. NO IV ACCESS AT THIS TIME. SEIZURE PRECAUTIONS IN PLACE. ASPIRATION, FALL AND SAFETY PRECAUTIONS IN PLACE. WILL CONTINUE TO MONITOR.
[2021-04-29 20:00] VITALS: BP 129/69
[2021-04-29] MEDS: OLANZAPINE 10 MG TABLET PO SCH (21:43)
--- NOTE | 2021-04-29 23:40 | NUR ---
MS/RN NOTE ADMINISTERED PRN ATIVAN 1MG IM TO RIGHT DELTOID. FORGOT TO SCAN BARCODE. ADMINISTERED AT APPROX. 23:40 FOR SEIZURE ACTIVITY.
--- NOTE | 2021-04-29 23:45 | NUR ---
MS/RN NOTE PATIENT AMBULATING IN HALLWAY. PATIENT SAT DOWN ON THE GROUND TO "REST" PER PATIENT. PATIENT STARTED HAVING SEIZURE THAT LASTED 1 MINUTE. VS: BP 138/81 HR 101 RR 22 T 97.8 O2 SAT 99% ON ROOM AIR. PATIENT HAD 2ND SEIZURE ONE MINUTE AFTER LASTING APPROX. ONE MINUTE. PATIENT MOVED TO BED ONCE STABLE AND PLACED ON O2 FOR PRECAUTION. ATIVAN IM PRN GIVEN PER ORDER TO LEFT DELTOID. PATIENT HAD 3RD SEIZURE IN ROOM LASTING 1 MINUTE. S/P SEIZURE PATIENT IS LETHARGIC, ALERT AND ORIENTED X 3. PATIENT CURRENTLY RESTING IN BED WITH SEIZURE PRECAUTIONS IN PLACE. MD AWARE. WILL CONTINUE TO MONITOR.
--- NOTE | 2021-04-30 02:00 | NUR ---
MS/RN NOTE REPORT GIVEN TO CARMEN GAUTAM FOR RICHARD.
[2021-04-30] MEDS: ACETAMINOPHEN 325 MG TABLET PO PRN ×3 (05:57→21:26)
--- NOTE | 2021-04-30 07:05 | NUR ---
MS/RN OPENING NOTE RECEIVED PATIENT WALKING AROUND UNIT. ALERT AND ORIENTED X 4. ABLE TO MAKE NEEDS KNOWN. DENIES PAIN AT THIS TIME. CONTINUES ON ROOM AIR WITH NO S/SX OF RESPIRATORY DISTRESS NOTED. NO IV ACCESS AT THIS TIME. SEIZURE PRECAUTIONS IN PLACE. ASPIRATION, FALL AND SAFETY PRECAUTIONS IN PLACE. WILL ENDORSE CARE.
--- NOTE | 2021-04-30 07:30 | NUR ---
MS RN OPENING NOTE RECEIVED PATIENT AWAKE IN BED. ALERT AND ORIENTED X 4. ABLE TO MAKE NEEDS KNOWN. DENIES PAIN AT THIS TIME. BREATHS ON ROOM AIR WITH NO S/SX OF RESPIRATORY DISTRESS NOTED. NO IV ACCESS AT THIS TIME. SEIZURE PRECAUTIONS IN PLACE. ASPIRATION, FALL AND SAFETY PRECAUTIONS IN PLACE. BED IN THE LOWEST POSITION AND LOCKED. SIDE RAILS X2 UP. CALL LIGHT AND TABLE WITHIN REACH.WILL CONTINUE TO MONITOR..
[2021-04-30 08:00] VITALS: BP 105/68
[2021-04-30] MEDS: PANTOPRAZOLE 40 MG TABLET.DR PO SCH (08:09)
[2021-04-30] MEDS: LEVETIRACETAM (250 MG) 250 MG TABLET PO SCH ×2 (08:39→20:08)
[2021-04-30] MEDS: LORAZEPAM INJ 2 MG/ML VIAL IM/IV PRN ×2 (11:11→21:27)
[2021-04-30 15:54] VITALS: BP 115/74
--- NOTE | 2021-04-30 18:50 | NUR ---
MS RN CLOSING NOTE PATIENT AWAKE , WALKING IN THE HALLWAY. ALERT AND ORIENTED X 4. ABLE TO MAKE NEEDS KNOWN. DENIES PAIN AT THIS TIME. BREATHS ON ROOM AIR WITH NO S/SX OF RESPIRATORY DISTRESS NOTED. NO IV ACCESS AT THIS TIME. SEIZURE PRECAUTIONS IN PLACE. ASPIRATION, FALL AND SAFETY PRECAUTIONS IN PLACE. DUE MEDS GIVEN ORDERED. PATIENT HAD ONE GENERALIZED SEIZURE STARTED AT 1104 WHICH LASTED FOR 3 MINUTES. ATIVAN GIVEN AT 1111 . NO CHANGE IN NEUROLOGICAL ASSESSMENTS NOTED. TYLENOL GIVEN AT 1356 .BED IN THE LOWEST POSITION AND LOCKED. SIDE RAILS X2 UP. CALL LIGHT AND TABLE WITHIN REACH. NO OTHER EPISODE HAPPENED DURING SHIFT. WILL ENDORSE INCOMING SHIFT FOR RICHARD.
--- NOTE | 2021-04-30 19:30 | NUR ---
MS RN OPENING NOTEs RECEIVED PATIENT AWAKE WALKING IN THE HALLWAY. ALERT AND ORIENTED X 4. STABLE ON ROOM AIR. NO IV ACCESS AT THIS TIME. SAFETY MEASURES IN PLACE: BED LOCKED, SIDE RAILS UPX2, AND CALL LIGHT WITHIN REACH OF THE PATIENT. SEIZURE PRECAUTIONS IN PLACE. WILL CONTINUE TO MONITOR THE PATIENT.
[2021-04-30 20:00] VITALS: BP_SYST 120; BP_SYST 141; BP_DIAS 61; BP_DIAS 78
[2021-04-30] MEDS: OLANZAPINE 10 MG TABLET PO SCH (21:09)
[2021-05-01] MEDS: LORAZEPAM INJ 2 MG/ML VIAL IM/IV PRN ×2 (00:13→06:03)
[2021-05-01] MEDS: ACETAMINOPHEN 325 MG TABLET PO PRN ×4 (03:35→23:27)
--- NOTE | 2021-05-01 07:00 | NUR ---
MS RN CLOSING NOTES PATIENT WAS SEEN SLEEPING IN BED. PATIENT'S ALERT AND ORIENTED X 4. STABLE ON ROOM AIR. NO IV ACCESS AT THIS TIME. SAFETY MEASURES IN PLACE: BED LOCKED, BED ALARM ON, SIDE RAILS UPX2, AND CALL LIGHT WITHIN REACH OF THE PATIENT. SEIZURE PRECAUTIONS IN PLACE. WILL ENDORSE CARE TO THE DAY SHIFT NURSE.
--- NOTE | 2021-05-01 07:30 | NUR ---
RN OPENING NOTE RECEIVED PATIENT SLEEPING IN BED, EASILY AWAKENED. A/O X3. ON ROOM AIR, TOLERATING WELL. DENIES SOB. IN NO APPARENT DISTRESS. SAFETY MEASURES MAINTAINED. BED IN LOWEST POSITION BRAKES LOCKED. SIDE RAILS UP X2. CALL LIGHT WITHIN REACH. WILL CONTINUE PLAN OF CARE.
[2021-05-01] MEDS: LEVETIRACETAM (250 MG) 250 MG TABLET PO SCH ×2 (08:58→21:09)
[2021-05-01] MEDS: PANTOPRAZOLE 40 MG TABLET.DR PO SCH (08:58)
--- NOTE | 2021-05-01 18:55 | NUR ---
RN CLOSING NOTE PATIENT RESTING IN BED. A/O X3. ON ROOM AIR, TOLERATING WELL. DENIES SOB. IN NO APPARENT DISTRESS. DUE MEDS GIVEN ORDERED. ALL NEEDS HAVE BEEN MET AND ATTENDED. SAFETY MEASURES MAINTAINED. BED IN LOWEST POSITION BRAKES LOCKED. SIDE RAILS UP X2. KEPT CALL LIGHT WITHIN REACH. WILL ENDORSE CONTINUITY OF CARE TO ONCOMING SHIFT.
--- NOTE | 2021-05-01 19:12 | NUR ---
MS RN OPENING NOTES RECEIVED PATIENT AWAKE WALKING IN THE HALLWAY. ALERT AND ORIENTED X3. STABLE ON ROOM AIR. NO IV ACCESS AT THIS TIME. SAFETY MEASURES IN PLACE: BED LOCKED, SIDE RAILS UPX2, AND CALL LIGHT WITHIN REACH OF THE PATIENT. SEIZURE PRECAUTIONS IN PLACE. WILL CONTINUE TO MONITOR THE PATIENT.
[2021-05-01 20:00] VITALS: BP 113/65
[2021-05-01] MEDS: OLANZAPINE 10 MG TABLET PO SCH (21:09)
[2021-05-02] MEDS: ACETAMINOPHEN 325 MG TABLET PO PRN ×2 (05:48→15:11)
[2021-05-02] MEDS: MAG HYDROX/AL HYDROX/SIMETH 30 ML UDC PO PRN (06:32)
--- NOTE | 2021-05-02 06:45 | NUR ---
MS RN CLOSING NOTES PATIENT LAST SEEN AWAKE IN HIS ROOM. ALERT AND ORIENTED X3. STABLE ON ROOM AIR. NO IV ACCESS AT THIS TIME. SAFETY MEASURES IN PLACE: BED LOCKED, SIDE RAILS UPX2, AND CALL LIGHT WITHIN REACH OF THE PATIENT. SEIZURE PRECAUTIONS IN PLACE. WILL ENDORSE CARE TO THE DAY SHIFT NURSE.
--- NOTE | 2021-05-02 07:10 | NUR ---
RN NOTES PATIENT SEEN AMBULATING IN THE HALLWAY. A/O X4, ABLE MAKE NEEDS KNOWN. NO ACUTE DISTRESS NOTED. NO IV LINES AT THIS TIME PER NATIONAL SALES REPORT RN. NO COMPLAINT OF PAIN VERBALIZED. SAFETY MEASURES IN PLACE. WILL CONTINUE TO MONITOR.
[2021-05-02] MEDS: PANTOPRAZOLE 40 MG TABLET.DR PO SCH (07:48)
[2021-05-02] MEDS: LEVETIRACETAM (250 MG) 250 MG TABLET PO SCH ×2 (08:01→21:02)
[2021-05-02 08:25] VITALS: BP 113/77
--- NOTE | 2021-05-02 08:50 | NUR ---
RN NOTES PATIENT SEEN BY DR. CABELLO TODAY IN AM.
[2021-05-02] MEDS: HYDROCODONE/APAP 5/325MG TABLET PO PRN ×2 (09:58→13:39)
[2021-05-02 16:00] VITALS: BP 132/58
[2021-05-02] MEDS: LORAZEPAM INJ 2 MG/ML VIAL IM/IV PRN ×2 (16:40→22:18)
--- NOTE | 2021-05-02 18:39 | NUR ---
RN NOTES PATIENT SEEN IN HALLWAY, USING UNIT TELEPHONE. A/O X3-4, VERBALLY RESPONSIVE AND ABLE TO MAKE NEEDS KNOWN. NO SEIZURE ACTIVITY NOTED DURING THE SHIFT. REQUESTED FOR ATIVAN IM FOR COMPLAINT OF ANXIETY. PROVIDED W/ SAFE AND CALM ENVIRONMENT. VERBAL CUES FOR SAFETY PROVIDED TO PATIENT. REMINDED TO INFORM STAFF OF VISUAL/AUDITORY HALLUCINATION. NO IV LINE, AWARE. SAFETY MEASURES MAINTAINED. WILL ENDORSE TO HIGH SCHOOL COMBINATION TEACHER RN FOR RICHARD.
--- NOTE | 2021-05-02 19:40 | NUR ---
MS opening notes Received Pt from morning nurse. Pt is in the hallway ambulates with a steady gait. Pt is alert and orientedX4. Respiration is normal in room air. No SOB. No S/S of distress noted. Pt denies any SI/HI at this time. No IV sites. Safety precautions is maintained and seizure precautions is maintained. Bed at low position, brakes locked, side rails upX2 and call light is within reach. Will continue to monitor.
[2021-05-02 20:00] VITALS: BP 125/77
[2021-05-02] MEDS: OLANZAPINE 10 MG TABLET PO SCH (21:02)
--- NOTE | 2021-05-02 21:26 | NUR ---
RN notes Called Dr. Monson regarding Pt's condition. Informed and notify MD about Pt statement. Pt stated " I want to kill my self!! I have anxiety and I want to go to psych [facility]!!" Reality orientation is provided and refused prn meds. Pt keep insisted wants to go to [facility]. MD is aware and informed. MD will come to see Pt tomorrow. Charge nurse is aware and informed. Will continue to monitor closely. Addendum: 05/02/21 at 2144 by ANALI MONACO RN No new orders received from MD. Pt doesn't have a sitter at this time.
--- NOTE | 2021-05-02 22:17 | NUR ---
RN notes Pt is screaming in the room and hit the wall. No redness noted. Refused to have skin checked. Will continue to monitor closely. Addendum: 05/02/21 at 2319 by ANALI MONACO RN with Viji mendoza.
--- NOTE | 2021-05-02 22:18 | NUR ---
RN notes Pt's feeling anxious, screaming and not following direction. Administered ativan inj/IM as ordered. Safety precautions is maintained. Will continue to monitor closely.
--- NOTE | 2021-05-02 22:38 | NUR ---
RN notes Pt is hearing voices. Pt's asking to wrapped his hand with a kerlix. Wrapped Pt's with a kerlix per Pt's requested. No redness noted. Pt is asking to help him to put his sweater. Pt is not following commands and directions. Pt keep talking and walking at the nursing station. Calling other nurses to ask to go with him for a walk. reality orientation provided. Pt still not following directions. Charge nurse is aware and informed.
--- NOTE | 2021-05-02 22:49 | NUR ---
RN notes Charge nurse allowed Pt to walk with DAIN Roberto.
--- NOTE | 2021-05-02 22:54 | NUR ---
RN notes Pt is back to our unit with DAIN Roberto safely. Pt still walking in hallway. Pt still not following directions. Refused to go to bed. Explained risks and benefits. Pt keep refusing. Will continue to monitor.
--- NOTE | 2021-05-02 23:00 | NUR ---
RN notes Asked Pt about Pt's L hand. Pt allowed to have his L hand checked. No redness noted. No S/S of distress noted. Pt stated "I'm okay." Will continue to monitor.
--- NOTE | 2021-05-02 23:32 | NUR ---
RN notes Pt stated "ativan is working!" im good!" Pt is eating chips at nursing station. Pt looks calmer.
--- NOTE | 2021-05-03 00:15 | NUR ---
RN notes Pt is asleep in bed comfortably. No S/S of distress noted.
[2021-05-03 03:48] VITALS: BP 129/84
--- NOTE | 2021-05-03 05:30 | NUR ---
RN notes Pt is awake, calm and sitting at the nursing station.
--- NOTE | 2021-05-03 06:30 | NUR ---
MS RN closing notes Pt is sitting in a chair next to nursing station. Pt is alert and orientedX4 and calm. Respiration is normal in room air. No SOB. No S/S of distress noted. VS is stable. Pt denies any SI/HI at this time. No IV sites. Safety precautions is maintained and seizure precautions is maintained. Bed at low position, brakes locked, side rails upX2 and call light is within reach. Will endorse to am nurse for RICHARD.
--- NOTE | 2021-05-03 07:18 | NUR ---
MS RN OPENING NOTES RECEIVED PATIENT ROAMING AROUND THE HALLWAYS. ALERT AND ORIENTED X 4. ABLE TO MAKE NEEDS KNOWN. DENIES PAIN OR ANY DISCOMFORTS AT THIS TIME. ON ROOM AIR, BREATHING EVEN AND UNLABORED, NO SOB NOTED. NO IV ACCESS AT THIS TIME. SEIZURE, ASPIRATION, FALL AND SAFETY PRECAUTIONS IN PLACE: WILL CONTINUE TO MONITOR PT ACCORDINGLY.
[2021-05-03] MEDS: PANTOPRAZOLE 40 MG TABLET.DR PO SCH (07:46)
[2021-05-03 08:00] VITALS: BP 114/56
[2021-05-03] MEDS: LEVETIRACETAM (250 MG) 250 MG TABLET PO SCH ×2 (08:13→20:09)
[2021-05-03] MEDS: ACETAMINOPHEN 325 MG TABLET PO PRN (15:09)
--- NOTE | 2021-05-03 15:13 | NUR ---
RN NOTES PT C/O OF MILD HEADACHE AND REQUESTED FOR TYLENOL. PRN TYLENOL 650 MG PO GIVEN AT 1509. WILL CONTINUE TO MONITOR PT.
[2021-05-03 16:04] VITALS: BP 107/67
--- NOTE | 2021-05-03 18:47 | NUR ---
MS RN CLOSING NOTES PT STANDING IN FRONT OF THE NURSES STATION AT THIS TIME. A/O X3-4. ABLE TO MAKE NEEDS KNOWN. ON ROOM AIR, BREATHING EVEN AND UNLABORED, NO SOB NOTED DURING THE DAY. NO SEIZURE ACTIVITY THIS SHIFT NOTED. ALL NEEDS AND CARE ATTENDED WELL. SEIZURE AND SAFETY PRECAUTIONS MAINTAINED. WILL ENDORSE RICHARD TO BINDERY MANAGER NURSE.
--- NOTE | 2021-05-03 19:40 | NUR ---
MS/RN OPENING NOTE RECEIVED PATIENT AMBULATING IN HALLWAY. ALERT AND ORIENTED X 4. ABLE TO MAKE NEEDS KNOWN. DENIES PAIN AT THIS TIME. CONTINUES ON ROOM AIR WITH NO S/SX OF RESPIRATORY DISTRESS NOTED. NO IV ACCESS AT THIS TIME. CONTINUES ON SEIZURE PRECAUTIONS. AWAITING KEPPRA LEVEL. CALL LIGHT WITHIN REACH. ASPIRATION, FALL AND SAFETY PRECAUTIONS MAINTAINED. WILL CONTINUE TO MONITOR.
[2021-05-03 20:00] VITALS: BP 126/88
[2021-05-03] MEDS: LORAZEPAM INJ 2 MG/ML VIAL IM/IV PRN (20:09)
--- NOTE | 2021-05-03 20:15 | NUR ---
MS/RN NOTE PATIENT WITH INCREASED ANXIETY AND VISUALLY UPSET. REQUESTING PRN ATIVAN INJECTION. ATIVAN ADMINISTERED TO RIGHT DELTOID PER ORDER. WILL CONTINUE TO MONITOR.
--- NOTE | 2021-05-03 20:30 | NUR ---
MS/RN NOTE PATIENT NOTED TO BE BANGING HEAD AGAINST THE WALL, YELLING, CRYING. PATIENT WANTS TO GO TO PSYCH FACILITY. AWAITING [facility] TO TRANSFER PATIENT. NOTIFIED COOKING CASING AND DRYING SUPERVISOR PSYCH DOCTOR CHANEL WITH NEW ORDER FOR PRN ZYPREXA 5MG IM Q6HRS FOR AGITATION. ORDER INPUTTED.
[2021-05-03] MEDS ORDERED: OLANZAPINE 10 MG VIAL IM PRN (20:36)
--- NOTE | 2021-05-03 20:45 | NUR ---
MS/RN NOTE PATIENT NOTED TO BE IN BATHROOM HITTING THE MIRROR. UPDATED PATIENT ON NEW MEDICATION ORDER WITH PATIENT REFUSING. PATIENT STATES HE WANTS TO LEAVE. WILL CONTACT ROVING INSPECTOR HOSPITALIST.
--- NOTE | 2021-05-03 20:59 | NUR ---
MS/RN NOTE CONTACTED CLIENT DELIVERY SPECIALIST MD SAUCEDA AND UPDATED ON PATIENT STATUS. MD STATES PATIENT CAN AMA IF HE WANTS. PATIENT IS ALERT AND ORIENTED X 4. ABLE TO MAKE NEEDS KNOWN. AMBULATORY WITH STEADY GAIT.
[2021-05-03] MEDS: OLANZAPINE 10 MG TABLET PO SCH (21:01)
--- NOTE | 2021-05-03 21:30 | NUR ---
MS/RN NOTE PATIENT STATES HE WILL NOT BE LEAVING AMA. VISUALLY MORE RELAXED. AMBULATING AROUND HALLWAY WITH STAFF, EATING SNACKS. PATIENT REQUEST PRN ZYPREXA INJECTION FOR ANXIETY/AGITATION. ADMINISTERED TO LEFT DELTOID PER ORDER. WILL CONTINUE TO MONITOR.
[2021-05-04] MEDS: ACETAMINOPHEN 325 MG TABLET PO PRN ×3 (03:19→18:03)
[2021-05-04] MEDS: MAG HYDROX/AL HYDROX/SIMETH 30 ML UDC PO PRN ×2 (05:08→16:00)
--- NOTE | 2021-05-04 07:20 | NUR ---
RN NOTES RECIEVED PATIENT IN BED, A/OX4, PATIENT IN ROOM AIR, BREATHING EVENLY AND NONLABORED. NO DISTRESS NOTED. SAFETY MEASURES PROVIDED. SIDE RAIL X2, LOW BED, BED LOCKED, CALL LIGHT WITHIN REACH. WILL CONTINUE TO PLAN OF CARE.
[2021-05-04 08:00] VITALS: BP 111/68
[2021-05-04] MEDS: HYDROCODONE/APAP 5/325MG TABLET PO PRN ×2 (08:14→23:02)
[2021-05-04] MEDS: PANTOPRAZOLE 40 MG TABLET.DR PO SCH (08:14)
[2021-05-04] MEDS: LEVETIRACETAM (250 MG) 250 MG TABLET PO SCH ×2 (08:14→21:10)
[2021-05-04 08:56] LABS: BASOPHILS % (AUTO) 0.4 % (0.0-2.0); EOSINOPHILS % (AUTO) 1.8 % (0.0-6.0); HEMATOCRIT 49 % (39-51); HEMOGLOBIN 16.1 g/dL (13.5-17.5); LYMPHOCYTES # (AUTO) 3.1 K/uL (0.8-4.8); MEAN CORPUSCULAR HGB CONC 33 g/dl (31.0-36.0); MEAN CORPUSCULAR VOLUME 97 fL (80-96); MONOCYTES # (AUTO) 0.9 K/uL (0.1-1.30); MONOCYTES % (AUTO) 11.3 % (2.0-12.0); NEUTROPHILS # (AUTO) 3.7 K/uL (1.8-8.9); NEUTROPHILS % (AUTO) 47.5 % (43.0-81.0); PLATELET COUNT (AUTO) 206 K/uL (150-450); RED BLOOD CELL COUNT(AUTO) 5.05 MIL/uL (4.5-6.0); WHITE BLOOD COUNT (AUTO) 7.8 K/uL (4.3-11.0)
[2021-05-04 09:28] LABS: CALCIUM, SERUM 8.4 mg/dL (8.5-10.1); CREATININE 0.9 mg/dL (0.6-1.3); POTASSIUM 4.9 mmol/L (3.5-5.1)
[2021-05-04 16:00] VITALS: BP 120/90
--- NOTE | 2021-05-04 16:51 | NUR ---
Psych Tx referral: SW refaxed clinicals to [facility] for voluntary psychiatric Tx. Per CM, they faxed the Keppra results that [facility] requested. Per [facility], they will review the clinicals and call unit for admission.
--- NOTE | 2021-05-04 18:16 | NUR ---
MS RN CLOSING NOTES PT STANDING IN FRONT OF THE NURSES STATION AT THIS TIME. A/O X4. ABLE TO MAKE NEEDS KNOWN. ON ROOM AIR, BREATHING EVEN AND UNLABORED NO DISTRESS NOTED. NO SEIZURE ACTIVITY THIS SHIFT NOTED. SEIZURE AND SAFETY PRECAUTIONS MAINTAINED. ALL NEEDS ATTENDED AND WILL ENDORSE TO HEAD OPERATOR NURSE FOR RICHARD.
--- NOTE | 2021-05-04 19:50 | NUR ---
MS RN OPENING NOTE PATIENT AWAKE NEAR NURSING STATION TALKING TO STAFF, ALERT/ORIENTED X 4, PT ABLE TO MAKE NEEDS KNOWN. PT STABLE ON RA, NO S/S OF DISTRESS OR SOB NOTED, BREATHING EVEN AND UNLABORED. PT DENIES PAIN AT THIS TIME. PT HAS NO IV ACCESS. POSSIBLE DISCHARGE TONIGHT, AWAITING TO HEAR BACK FROM [facility]. SAFETY AND SEIZURE PRECAUTIONS IN PLACE: BED LOCKED IN LOW POSITION, SIDE RAILS UP X 2, CALL LIGHT AND TABLE WITHIN REACH. WILL CONTINUE TO MONITOR PATIENT
--- NOTE | 2021-05-04 20:45 | NUR ---
MS RN NOTE RECEIVED CALL FROM [facility] WITH REQUEST TO FAX COVID TEST RESULTS, KEPPRA LEVELS RESULTS AND LAST SEIZURE ACTIVITY DOCUMENTATION. FAX NUMBER [phone], PHONE NUMBER [phone]
[2021-05-04] MEDS: OLANZAPINE 10 MG TABLET PO SCH (21:18)
--- NOTE | 2021-05-04 22:55 | NUR ---
MS RN NOTES COVID SWAB DONE AND TAKEN TO LAB
[2021-05-05] MEDS: ACETAMINOPHEN 325 MG TABLET PO PRN (00:34)
--- NOTE | 2021-05-05 02:33 | NUR ---
MS RN NOTE COVID TEST NEGATIVE. FAXED RESULTS OF COVID AND KEPPRA LEVELS TO [facility]
[2021-05-05] MEDS: MAG HYDROX/AL HYDROX/SIMETH 30 ML UDC PO PRN (04:13)
--- NOTE | 2021-05-05 05:50 | NUR ---
MS RN NOTE CALLED [facility] TO CONFIRM THAT THEY RECEIVED THE FAX, STATED THEY DID. WAS TOLD THAT THE SENIOR ORACLE APPLICATIONS DEVELOPER NEEDS TO REVIEW THE PAPERWORK AND THEY WILL CALL OUR HOSPITAL
--- NOTE | 2021-05-05 07:30 | NUR ---
MS RN OPENING NOTE RECEIVED PATIENT RESTING ON SHILPA, ALERT/ORIENTED X 4. NO SEIZURE ACTIVITY. ON ROOM AIR TOLERATING WELL. NO S/S OF DISTRESS OR SOB NOTED, BREATHING EVEN AND UNLABORED. SAFETY AND SEIZURE PRECAUTIONS IN PLACE. CALL LIGHT WITHIN REACH. BED ON LOWEST AND LOCKED POSITION, SIDE RAILS UP X2. WILL CONTINUE TO MONITOR.
--- NOTE | 2021-05-05 07:35 | NUR ---
MS RN CLOSING NOTE PATIENT AWAKE IN HALLWAY, ALERT/ORIENTED X 4. NO SIGNIFICANT CHANGES THROUGHOUT SHIFT, PT WAS AWAKE ALL NIGHT DESPITE ASKING PATIENT TO GO TO BED MULTIPLE TIMES THROUGHOUT SHIFT. NO SEIZURE ACTIVITY THROUGHOUT SHIFT. PT STABLE ON RA, NO S/S OF DISTRESS OR SOB NOTED, BREATHING EVEN AND UNLABORED. MEDICATION GIVEN ORDERED, PT NEEDS MET THROUGHOUT SHIFT. SAFETY AND SEIZURE PRECAUTIONS IN PLACE. ENDORSED TO DAY SHIFT NURSE FOR CONTINUITY OF CARE
[2021-05-05] MEDS: PANTOPRAZOLE 40 MG TABLET.DR PO SCH (09:06)
[2021-05-05] MEDS: LEVETIRACETAM (250 MG) 250 MG TABLET PO SCH ×2 (09:06→20:23)
--- NOTE | 2021-05-05 19:40 | NUR ---
MS RN CLOSING NOTES PATIENT WALKING AT THE HALLWAY, ALERT/ORIENTED X 4. NO SEIZURE ACTIVITY THROUGHOUT THE SHIFT. ON ROOM AIR TOLERATING WELL. NO S/S OF DISTRESS OR SOB NOTED, BREATHING EVEN AND UNLABORED. DUE MEDS GIVEN. SAFETY AND SEIZURE PRECAUTIONS IN PLACE. CALL LIGHT WITHIN REACH. BED ON LOWEST AND LOCKED POSITION, SIDE RAILS UP X2. FOR DISCHARGE TO [facility]. WILL ENDORSE TO NEXT SHIFT FOR RICHARD.
--- NOTE | 2021-05-05 20:00 | NUR ---
MS RN OPENING NOTES RECEIVED PATIENT AWAKE WALKING IN THE HALLWAYS. PATIENT' STABLE ON ROOM AIR. NO IV ACCESS AT THIS TIME. PATIENT'S IN NO ACUTE DISTRESS AT THIS TIME. SAFETY MEASURES IN PLACE; BED LOCKED, SIDE RAILS UP X2, AND CALL LIGHT WITHIN REACH OF THE PATIENT. WILL CONTINUE TO MONITOR THE PATIENT.
[2021-05-05] MEDS: LORAZEPAM INJ 2 MG/ML VIAL IM/IV PRN (20:23)
--- NOTE | 2021-05-05 20:43 | NUR ---
MS HOSPITAL NURSE LIAISON NOTES PATIENT WAS DISCHARGED FROM THE UNIT APPROXIMATELY AT THIS TIME ACCOMPANIED BY 2 REGISTERED RADIOGRAPHER. PATIENT WAS IN NO ACUTE DISTRESS AT THE TIME OF DISCHARGE. PATIENT'S VITALS WERE WNL AT THE TIME OF DISCHARGE. DISCHARGE PAPERWORK WAS GIVEN TO THE EMT WELL VERBAL REPORT ON THE PATIENT. PATIENT HAD ALL OF HIS BELONGINGS AT DISCHARGE.
== END 2021-05-05 20:45 | DRG 53 ==
LOC: ER 19:27 → TRANSITION 04-23 04:36 → TELE 04-23 17:42 → MED 04-28 18:54
PROVIDERS: ADMIT Nurse Practitioner Acute Care; ATTEND Family Medicine
DX: G40.909 Epilepsy, unspecified, not intractable, without status epilepticus (principal); N17.0 Acute kidney failure with tubular necrosis; Z88.8 Allergy status to other drugs, medicaments and biological substances; E11.9 Type 2 diabetes mellitus without complications; F32.A Depression, unspecified; J45.909 Unspecified asthma, uncomplicated; I10 Essential (primary) hypertension; Z59.00 Homelessness unspecified; Z91.14 Patient's other noncompliance with medication regimen; Z62.810 Personal history of physical and sexual abuse in childhood; F43.10 Post-traumatic stress disorder, unspecified; R45.851 Suicidal ideations; N13.9 Obstructive and reflux uropathy, unspecified; R44.0 Auditory hallucinations
CPT/HCPCS: 36415; 70450-TC; 73080-TC; 80048-TC; 80053-TC; 80177; 82550-TC; 83735-TC; 84100-TC; 85025-TC; 87081-TC; C9803; G0378; G0480; J1953; J2060; J2405; J3490; J7030

== ENCOUNTER 2021-05-12 21:11 | Emergency (ER) | payer OTHER ==
[~2021-05-12] VITALS: Ht 157.5 cm; Wt 73.5 kg
[~2021-05-12 21:11] MED LIST changes: +Olanzapine PO
--- NOTE | 2021-05-12 21:43 | NUR ---
PHELBOTOMIST AT BEDSIDE
--- NOTE | 2021-05-12 21:45 | NUR ---
URINE AND COVID SWAB COLLECTED AND SENT TO LAB
[2021-05-12 22:08] LABS: BASOPHILS # (AUTO) 0.2 K/uL (0.0-0.2); BASOPHILS % (AUTO) 2.8 % (0.0-2.0); EOSINOPHILS % (AUTO) 2.1 % (0.0-6.0); HEMATOCRIT 47 % (39-51); HEMOGLOBIN 15.5 g/dL (13.5-17.5); LYMPHOCYTES # (AUTO) 2.6 K/uL (0.8-4.8); LYMPHOCYTES % (AUTO) 32.1 % (20.0-44.0); MEAN CORPUSCULAR HGB CONC 33 g/dl (31.0-36.0); MEAN CORPUSCULAR VOLUME 95 fL (80-96); MONOCYTES # (AUTO) 0.7 K/uL (0.1-1.30); MONOCYTES % (AUTO) 9.2 % (2.0-12.0); NEUTROPHILS # (AUTO) 4.3 K/uL (1.8-8.9); NEUTROPHILS % (AUTO) 53.8 % (43.0-81.0); PLATELET COUNT (AUTO) 249 K/uL (150-450); RED BLOOD CELL COUNT(AUTO) 4.94 MIL/uL (4.5-6.0); WHITE BLOOD COUNT (AUTO) 8.1 K/uL (4.3-11.0)
[2021-05-12 22:22] LABS: BILIRUBIN,URINE Negative (NEGATIVE); COLOR,URINE YELLOW (YELLOW); LEUKOCYTE ESTERASE ,URINE Negative (NEGATIVE); NITRITE, URINE Negative (NEGATIVE); PROTEIN,URINE Negative (NEGATIVE); UGLUCOSE Negative (NEGATIVE); UROBILINOGEN,URINE 0.2 EU/dL (0.2)
[2021-05-12 22:35] LABS: CALCIUM, SERUM 9.2 mg/dL (8.5-10.1); CARBON DIOXIDE 26 mmol/L (21-32); CHLORIDE 105 mmol/L (98-107); GLUCOSE 83 mg/dL (74-106); POTASSIUM 4.2 mmol/L (3.5-5.1); SODIUM SERUM 142 mmol/L (136-145); UREA NITROGEN, BLOOD 8 mg/dL (7-18)
[2021-05-12 22:41] LABS: ALANINE AMINOTRANSFERASE 23 U/L (12-78); ALBUMIN 3.8 g/dL (3.4-5.0); ALCOHOL, BLOOD < 3 mg/dL (0-0); ALKALINE PHOSPHATASE 103 U/L (46-116); ASPARTATE AMINOTRANSFERASE 13 U/L (15-37); BILIRUBIN,DIRECT 0.1 mg/dL (0.0-0.2); BILIRUBIN,TOTAL 0.2 mg/dL (0.2-1.0); TOTAL PROTEIN, SERUM 7.9 g/dL (6.4-8.2)
[2021-05-12 22:42] LABS: ACETAMINOPHEN < 2 ug/ml (10-30)
[2021-05-13] VITALS: BP 126/69
--- NOTE | 2021-05-13 00:53 | NUR ---
FACESHEET AND CLINICALS FAXED TO [facility].
--- NOTE | 2021-05-13 01:55 | NUR ---
PATIENT VSS, PATIENT NO LONGER STATES SI, PT DOES NOT WISH TO CONTINUE WITH CARE. PATIENT ELOPED FROM FACILITY. HUSSAIN MAYBERRY NOTIFIED. Addendum: 05/13/21 at 0410 by LUISA PATIENT VSS, PATIENT NO LONGER STATES SI, PT DOES NOT WISH TO CONTINUE WITH CARE. Patient does not wish to proceed with medical care recommended by Dr. Whitfield. Patient given information related to possible complications, up to and including , which could occur as a result of leaving the hospital at this time. Patient verbalizes understanding of risks involved due to leaving against medical advice. Patient refused to sign AMA form.
== END 2021-05-13 02:00 | disposition left against medical advice (07) ==
LOC: ER 21:20
DX: R45.851 Suicidal ideations (principal); R44.0 Auditory hallucinations; J45.909 Unspecified asthma, uncomplicated; Z59.01 Sheltered homelessness; E11.9 Type 2 diabetes mellitus without complications; I10 Essential (primary) hypertension; G40.909 Epilepsy, unspecified, not intractable, without status epilepticus; Z79.899 Other long term (current) drug therapy; Z91.012 Allergy to eggs; Z91.013 Allergy to seafood; Z88.8 Allergy status to other drugs, medicaments and biological substances
CPT/HCPCS: 36415; 80048; 80076; 80143; 80307; 80320; 81003; 85025; 87426; 99285; C9803; G0480

== ENCOUNTER 2021-05-13 08:10 | Emergency (ER) | payer OTHER ==
[~2021-05-13] VITALS: Ht 157.5 cm; Wt 73.5 kg
[2021-05-13 10:14] LABS: BASOPHILS % (AUTO) 0.5 % (0.0-2.0); EOSINOPHILS % (AUTO) 1.7 % (0.0-6.0); HEMATOCRIT 48 % (39-51); HEMOGLOBIN 15.8 g/dL (13.5-17.5); LYMPHOCYTES # (AUTO) 2.1 K/uL (0.8-4.8); LYMPHOCYTES % (AUTO) 28.9 % (20.0-44.0); MEAN CORPUSCULAR HGB CONC 33 g/dl (31.0-36.0); MEAN CORPUSCULAR VOLUME 95 fL (80-96); MONOCYTES # (AUTO) 0.7 K/uL (0.1-1.30); MONOCYTES % (AUTO) 9.2 % (2.0-12.0); NEUTROPHILS # (AUTO) 4.4 K/uL (1.8-8.9); NEUTROPHILS % (AUTO) 59.7 % (43.0-81.0); PLATELET COUNT (AUTO) 251 K/uL (150-450); RED BLOOD CELL COUNT(AUTO) 5.06 MIL/uL (4.5-6.0); WHITE BLOOD COUNT (AUTO) 7.4 K/uL (4.3-11.0)
[2021-05-13 10:18] LABS: BILIRUBIN,URINE Negative (NEGATIVE); COLOR,URINE YELLOW (YELLOW); LEUKOCYTE ESTERASE ,URINE Negative (NEGATIVE); NITRITE, URINE Negative (NEGATIVE); PROTEIN,URINE Negative (NEGATIVE); UGLUCOSE Negative (NEGATIVE); UROBILINOGEN,URINE 0.2 EU/dL (0.2)
[2021-05-13 10:21] LABS: CALCIUM, SERUM 8.9 mg/dL (8.5-10.1); CARBON DIOXIDE 32 mmol/L (21-32); CHLORIDE 105 mmol/L (98-107); CREATININE 1.1 mg/dL (0.6-1.3); GLUCOSE 97 mg/dL (74-106); POTASSIUM 4.1 mmol/L (3.5-5.1); SODIUM SERUM 142 mmol/L (136-145); UREA NITROGEN, BLOOD 10 mg/dL (7-18)
[2021-05-13 10:34] LABS: ALANINE AMINOTRANSFERASE 27 U/L (12-78); ALBUMIN 3.9 g/dL (3.4-5.0); ALKALINE PHOSPHATASE 98 U/L (46-116); ASPARTATE AMINOTRANSFERASE 15 U/L (15-37); BILIRUBIN,DIRECT 0.1 mg/dL (0.0-0.2); BILIRUBIN,TOTAL 0.4 mg/dL (0.2-1.0)
[2021-05-13 10:35] LABS: ALCOHOL, BLOOD < 3 mg/dL (0-0)
--- NOTE | 2021-05-13 12:49 | NUR ---
[facility]
--- NOTE | 2021-05-13 16:00 | NUR ---
REVIEWING CASE WILL LET US KNOW.
--- NOTE | 2021-05-13 19:00 | NUR ---
CALLED [facility] INTAKE PER ART AWAITING RESPONSE FROM [facility]
--- NOTE | 2021-05-13 21:06 | NUR ---
CALLED [facility] INTAKE SPOKE TO [facility], CHECKING FOR BEDS AT [facility] PER PT REQUEST
--- NOTE | 2021-05-13 22:07 | NUR ---
ACCEPTED AT [facility] ACCEPTING MD DR BLAKE EXT [phone]
--- NOTE | 2021-05-13 23:47 | NUR ---
CALLED [facility] FOR BLS TRANSPORT TO [facility]. ETA IS 90-120 MIN
--- NOTE | 2021-05-14 00:35 | NUR ---
REPORT GIVEN TO KRISH GAUTAM. PICKED UP BY [phone].
--- NOTE | 2021-05-14 00:36 | NUR ---
PATIENT TRANSFERRED TO [facility] IN STABLE CONDITION
[2021-05-14 05:50] VITALS: BP 136/80
== END 2021-05-14 05:50 ==
LOC: ER 09:09
DX: R45.851 Suicidal ideations (principal); R44.0 Auditory hallucinations; I10 Essential (primary) hypertension; J45.909 Unspecified asthma, uncomplicated; E11.9 Type 2 diabetes mellitus without complications; Z91.012 Allergy to eggs; Z91.013 Allergy to seafood; Z88.8 Allergy status to other drugs, medicaments and biological substances; Z59.00 Homelessness unspecified; Z79.899 Other long term (current) drug therapy
CPT/HCPCS: 36415; 80048-TC; 80076-TC; 85025-TC; G0480

== ENCOUNTER 2021-12-13 08:39 | Emergency (ER) | payer OTHER ==
[~2021-12-13] VITALS: Ht 157.5 cm; Wt 79.0 kg
--- NOTE | 2021-12-13 08:44 | NUR ---
TO ER BED 9. [id number] FROM [facility] FOR WITNESSED SEIZURE X 1 MIN TODAY AM. PT IS A&OX4. ATTACHED TO MONITOR, VITALS ARE WITHIN NORMAL LIMITS, NO RESP DISTRESS NOTED ON ROOM AIR. SEIZURE PRECAUTIONS IN PLACE. WARM BLANKET PROVIDED FOR COMFORT. AWAITING MD DAVID.
--- NOTE | 2021-12-13 08:55 | NUR ---
IV ESTABLIHSED L WRIST 20G. LABS DRAWN AND SENT.
--- NOTE | 2021-12-13 09:07 | NUR ---
URINE SAMPLE COLLECTED AND SENT TO LAB
--- NOTE | 2021-12-13 09:08 | NUR ---
DR MALDONADO AT BEDSIDE FOR EVAL
[2021-12-13] MEDS ORDERED: LEVETIRACETAM (500MG) 1,000 MG in IV NS 0.9% 100 ML IV SCH (09:30)
[2021-12-13] MEDS ORDERED: LEVETIRACETAM (500MG) 500 MG in IV NS 0.9% 100 ML IV ONE (09:30)
[2021-12-13 09:34] LABS: BASOPHILS # (AUTO) 0.1 K/uL (0.0-0.2); BASOPHILS % (AUTO) 0.8 % (0.0-2.0); EOSINOPHILS % (AUTO) 1.4 % (0.0-6.0); HEMATOCRIT 45 % (39-51); HEMOGLOBIN 14.5 g/dL (13.5-17.5); LYMPHOCYTES # (AUTO) 1.5 K/uL (0.8-4.8); LYMPHOCYTES % (AUTO) 19.4 % (20.0-44.0); MEAN CORPUSCULAR HGB CONC 32 g/dl (31.0-36.0); MEAN CORPUSCULAR VOLUME 90 fL (80-96); MONOCYTES % (AUTO) 12.2 % (2.0-12.0); NEUTROPHILS # (AUTO) 5.2 K/uL (1.8-8.9); NEUTROPHILS % (AUTO) 66.2 % (43.0-81.0); PLATELET COUNT (AUTO) 183 K/uL (150-450); RED BLOOD CELL COUNT(AUTO) 5.05 MIL/uL (4.5-6.0); WHITE BLOOD COUNT (AUTO) 7.9 K/uL (4.3-11.0)
[2021-12-13 09:48] LABS: CALCIUM, SERUM 8.8 mg/dL (8.5-10.1); CREATININE 1.5 mg/dL (0.6-1.3); POTASSIUM 3.8 mmol/L (3.5-5.1)
[2021-12-13] MEDS ORDERED: LORAZEPAM INJ 2 MG/ML VIAL ONE (09:51)
--- NOTE | 2021-12-13 09:52 | NUR ---
THE PATIENT IS NOTED HAVING SEZIURE (TONIC-CLONIC). DR MALDONADO MADE AWARE WITH NEW ORDER OF ATIVAN 2 MG IV PUSH ONCE. THE ORDER IS READ BACK, VERIFIED. NOTED AND CARRIED OUT.
[2021-12-13] MEDS ORDERED: LORAZEPAM INJ 2 MG/ML VIAL IV ONE (10:00)
[2021-12-13] MEDS ORDERED: LEVE1000 PO (11:24)
[2021-12-13] MEDS ORDERED: VALPROIC ACID 250 MG/5 ML UDC ONE (11:29)
[2021-12-13] MEDS ORDERED: VALPROIC ACID 250 MG/5 ML UDC PO ONE (11:30)
--- NOTE | 2021-12-13 11:41 | NUR ---
FAXED PT CLINICALS TO [facility] FOR THE PT TO RETURN TO THEIR FACILITY. AWAITING A CALL BACK WITH ANY UPDATES
--- NOTE | 2021-12-13 11:47 | NUR ---
PT GIVEN PO MED, TAKEN WELL.
[2021-12-13 12:34] LABS: BAND % (MANUAL) 7 % (0.0-5.0); EOSINOPHILS % (MANUAL) 4 % (0-4); LYMPHOCYTES % (MANUAL) 25 % (16-48); MONOCYTES % (MANUAL) 6 % (0-11.0); NEUTROPHILS % (MANUAL) 58 (42-76)
--- NOTE | 2021-12-13 12:49 | NUR ---
CALLED [facility] FOR UPDATE AND WAS NOTIFIED THAT THE PT IS STILL AWAITING FEEDBACK FROM NURSING SUP. WILL CALL BACK FOR UPDATE
--- NOTE | 2021-12-13 14:20 | NUR ---
CALLED [facility] FOR UPDATE ON PT'S ACCEPTANCE STATUS AND WAS NOTIFIED THAT THE PT IS STILL AWAITING FEEDBACK FROM NURSING TENTER FRAME OPERATOR. ETA 1500 FOR FEEDBACK FROM NURSING SUP
--- NOTE | 2021-12-13 15:24 | NUR ---
ACCEPTED BACK TO [facility] UNDER [address]. ZAPATA. PT IS GOING TO UNIT [phone]
--- NOTE | 2021-12-13 15:26 | NUR ---
called [facility] and set up s transport et[facility] 170
--- NOTE | 2021-12-13 16:40 | NUR ---
IV removed. Catheter intact and site benign. Pressure and 4x4 applied to site. No bleeding noted.
--- NOTE | 2021-12-13 16:41 | NUR ---
EMT AT BEDSIDE; ENDORSEMENT GIVEN.
--- NOTE | 2021-12-13 16:45 | NUR ---
PT REFUSED TO SIGN DISCHARGE FORM. FORM SIGNED BY ME AND ANOTHER RN. ENDORSED DISCHARGE DOCS TO EMT.
[2021-12-13 16:48] VITALS: BP 121/67
== END 2021-12-13 16:49 ==
LOC: ER 08:40
DX: R56.9 Unspecified convulsions (principal); J45.909 Unspecified asthma, uncomplicated; I10 Essential (primary) hypertension; E11.9 Type 2 diabetes mellitus without complications; Z20.822 Contact with and (suspected) exposure to COVID-19; Z91.012 Allergy to eggs; Z91.013 Allergy to seafood; Z59.00 Homelessness unspecified; Z79.899 Other long term (current) drug therapy; R74.8 Abnormal levels of other serum enzymes
CPT/HCPCS: 99285; 96365; 96375; 87426; 85025; 80048; 36415; 80164; 85007; J2060; J7030 ×4; J1953 ×2; C9803

== ENCOUNTER 2021-12-13 22:54 | Emergency (ER) | payer OTHER ==
[~2021-12-13] VITALS: Ht 157.5 cm; Wt 76.2 kg
[~2021-12-13 22:54] MED LIST changes: +LEVE1000 PO
[2021-12-13 23:05] VITALS: BP 134/72
--- NOTE | 2021-12-14 00:41 | NUR ---
Patient discharged to home in stable condition. Written and verbal after care instructions given. Patient verbalizes understanding of instruction. Pt stated he did not want to wait for clothes. He stated he will walk to [facility] and take his clothes from there.
== END 2021-12-14 00:42 | disposition home or self-care (01) ==
LOC: ER 22:55
DX: R56.9 Unspecified convulsions (principal); F32.A Depression, unspecified; I10 Essential (primary) hypertension; J45.909 Unspecified asthma, uncomplicated; E11.9 Type 2 diabetes mellitus without complications; Z86.69 Personal history of other diseases of the nervous system and sense organs; Z91.012 Allergy to eggs; Z91.013 Allergy to seafood; Z88.8 Allergy status to other drugs, medicaments and biological substances; Z59.00 Homelessness unspecified; Z79.899 Other long term (current) drug therapy

== ENCOUNTER 2025-02-01 07:58 | Emergency (ER) | payer MEDICAID, OTHER ==
[~2025-02-01] VITALS: Ht 152.4 cm; Wt 65.8 kg
[2025-02-01 08:08] VITALS: TEMP 98.1
[2025-02-01 08:29] LABS: PLATELET COUNT (AUTO) 174 K/uL (150-450); RED BLOOD CELL COUNT(AUTO) 5.43 MIL/uL (4.5-6.0); RED CELL DISTRIBUTION WIDTH 13.5 % (11.5-15.0); WHITE BLOOD COUNT (AUTO) 5.4 K/uL (4.3-11.0)
[2025-02-01] MEDS ORDERED: LEVETIRACETAM (250 MG) 250 MG TABLET ONE (08:29)
[2025-02-01] MEDS: LEVETIRACETAM (250 MG) 250 MG TABLET PO ONE (08:32)
[2025-02-01 08:38] LABS: CALCIUM, SERUM 10.0 mg/dL (8.5-10.1); CREATININE 1.4 mg/dL (0.6-1.3); SODIUM SERUM 141 mmol/L (136-145); UREA NITROGEN, BLOOD 16 mg/dL (7-18)
[2025-02-01 08:40] LABS: APPEARANCE,URINE CLEAR (CLEAR); BLOOD, URINE NEGATIVE Ery/uL (NEGATIVE); LEUKOCYTE ESTERASE ,URINE NEGATIVE (NEGATIVE); NITRITE, URINE POSITIVE (NEGATIVE); UGLUCOSE NEGATIVE (NEGATIVE)
[2025-02-01 08:43] LABS: ALCOHOL, BLOOD < 3 mg/dL (0-10); ASPARTATE AMINOTRANSFERASE 16 U/L (15-37); TOTAL PROTEIN, SERUM 7.5 g/dL (6.4-8.2)
[2025-02-01 08:48] LABS: AMPHETAMINE, URINE NEGATIVE (NEGATIVE); BARBITURATE, URINE NEGATIVE (NEGATIVE); BENZODIAZEPINE, URINE NEGATIVE (NEGATIVE); CANNABINOID, URINE NEGATIVE (NEGATIVE); COCCAINE, URINE NEGATIVE (NEGATIVE); OPIATE, URINE NEGATIVE (NEGATIVE)
[2025-02-01 08:57] LABS: ADD URINE CULTURE YES; SQUAMOUS EPITHELIAL CELL,UR 0-2 /HPF (None Seen)
[2025-02-01 11:09] VITALS: BP 99/74; O2SAT 97
== END 2025-02-01 12:56 ==
LOC: ER 08:00
DX: R56.9 Unspecified convulsions (principal); R45.851 Suicidal ideations; J45.909 Unspecified asthma, uncomplicated; I10 Essential (primary) hypertension; F29 Unspecified psychosis not due to a substance or known physiological condition; E11.9 Type 2 diabetes mellitus without complications; Z79.899 Other long term (current) drug therapy; Z91.013 Allergy to seafood; Z20.822 Contact with and (suspected) exposure to COVID-19
CPT/HCPCS: 36415; 70450-TC; 80048-TC; 80076-TC; 81001; 82962-TC; 85025-TC; 87086-TC; G0480

== ENCOUNTER 2025-02-03 09:21 | Inpatient (IN) | payer MEDICAID, OTHER ==
[~2025-02-03] VITALS: Ht 160 cm; Wt 76.2 kg
[2025-02-03 09:50] LABS: PLATELET COUNT (AUTO) 173 K/uL (150-450); RED BLOOD CELL COUNT(AUTO) 5.39 MIL/uL (4.5-6.0); RED CELL DISTRIBUTION WIDTH 13.5 % (11.5-15.0); WHITE BLOOD COUNT (AUTO) 5.4 K/uL (4.3-11.0)
[2025-02-03] MEDS: IV NS 0.9% 500 ML BAG IV ONE (09:51)
[2025-02-03] MEDS: LEVETIRACETAM (500MG) 1,000 MG in IV NS 0.9% 90 ML IV SCH ×2 (09:51→20:47)
[2025-02-03 09:56] LABS: CALCIUM, SERUM 9.1 mg/dL (8.5-10.1); CREATININE 1.2 mg/dL (0.6-1.3); SODIUM SERUM 141.0 mmol/L (136-145); UREA NITROGEN, BLOOD 16.0 mg/dL (7-18)
[2025-02-03] MEDS ORDERED: LORAZEPAM INJ 2 MG/ML VIAL IV PRN (15:00)
[2025-02-03] MEDS ORDERED: MAGNESIUM HYDROXIDE 30 ML UDC PO PRN (15:00)
[2025-02-03] MEDS ORDERED: Z GUARD REMEDY 4 OZ OINT TP PRN (15:00)
[2025-02-03] MEDS ORDERED: ONDANSETRON HCL/PF 4 MG/2 ML VIAL IVP PRN (15:00)
[2025-02-03] MEDS ORDERED: ZOLPIDEM TARTRATE 5 MG TABLET PO PRN (15:00)
[2025-02-03] MEDS ORDERED: MAG HYDROX/AL HYDROX/SIMETH 30 ML UDC PO PRN (15:00)
[2025-02-03 20:00] VITALS: BP 113/55; TEMP 97.9; O2SAT 98
[2025-02-03 23:01] LABS: VALPROIC ACID 66.0 ug/mL (50-100)
[2025-02-04] VITALS: BP 108/55; TEMP 97.7; O2SAT 97
[2025-02-04] MEDS: ACETAMINOPHEN 325 MG TABLET PO PRN (03:31)
[2025-02-04] MEDS: IBUPROFEN 600 MG TABLET PO PRN (04:37)
[2025-02-04 06:18] LABS: PLATELET COUNT (AUTO) 170 K/uL (150-450); RED BLOOD CELL COUNT(AUTO) 5.15 MIL/uL (4.5-6.0); RED CELL DISTRIBUTION WIDTH 13.5 % (11.5-15.0); WHITE BLOOD COUNT (AUTO) 5.9 K/uL (4.3-11.0)
[2025-02-04 06:30] LABS: CALCIUM, SERUM 9.2 mg/dL (8.5-10.1); CREATININE 1.2 mg/dL (0.6-1.3); PHOSPHORUS 3.9 mg/dL (2.5-4.9); SODIUM SERUM 142.0 mmol/L (136-145); UREA NITROGEN, BLOOD 17.0 mg/dL (7-18)
[2025-02-04] MEDS: PANTOPRAZOLE 40 MG TABLET.DR PO SCH (07:48)
[2025-02-04 08:01] VITALS: BP 106/60; TEMP 98.4; O2SAT 98
[2025-02-04] MEDS ORDERED: OLANZAPINE ZYDIS 5 MG TAB.RAPDIS PO SCH (11:00)
== END 2025-02-04 11:21 | disposition left against medical advice (07) | DRG 53 ==
LOC: ER 09:25 → TELE 16:39
DX: R56.9 Unspecified convulsions (principal); F25.1 Schizoaffective disorder, depressive type; E11.9 Type 2 diabetes mellitus without complications; I10 Essential (primary) hypertension; J45.909 Unspecified asthma, uncomplicated; Z88.8 Allergy status to other drugs, medicaments and biological substances; Z91.012 Allergy to eggs; Z91.013 Allergy to seafood; Z79.899 Other long term (current) drug therapy; F60.9 Personality disorder, unspecified; Z53.29 Procedure and treatment not carried out because of patient's decision for other reasons; R41.83 Borderline intellectual functioning
CPT/HCPCS: 36415; 80048-TC; 80164-TC; 83735-TC; 84100-TC; 85025-TC; 87081-TC; A4223; G0378; J1953; J7030; J7050